=== PATIENT | female | born 1995 | race American Indian/Alaskan Native ===

== ENCOUNTER 2017-08-27 13:06 | Emergency (ER) | payer OTHER, MEDICAID ==
[2017-08-27 13:31] VITALS: BP 131/89
--- NOTE | 2017-08-27 13:55 | EDM.PDOC ---
ED HPI GENERAL MEDICAL PROBLEM - General Chief Complaint: Abdominal Pain Stated Complaint: PAIN ON RT SIDE Time Seen by Provider: 08/27/17 13:55 Source of Information: Reports: Patient, RN, RN Notes Reviewed History Limitations: Reports: No Limitations - History of Present Illness INITIAL COMMENTS - FREE TEXT/NARRATIVE: Patient presents with onset of right mid-abdominal pain 2 days ago with chills and nausea. The nausea went away but the pain increased and aches into the right flank. Denies vomiting or radiating pain. Duration: Getting Worse Location: Reports: Abdomen Quality: Reports: Ache Severity: Moderate Improves with: Reports: None Worsens with: Reports: None Associated Symptoms: Reports: No Other Symptoms Right Flank Pain Score (Numeric/FACES): 6 - Related Data Allergies Allergy/AdvReac Type Severity Reaction Status Date / Time No Known Allergies Allergy Verified 08/27/17 13:31 Home Meds: Home Meds . 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 ED EXAM, GI/ABD - Physical Exam Exam: See Below Exam Limited By: No Limitations General Appearance: Alert, WD/WN, No Apparent Distress Eyes: Bilateral: Normal Appearance Ears: Normal External Exam, Normal Canal, Hearing Grossly Normal, Normal TMs Nose: Normal Inspection, Normal Mucosa, No Blood Throat/Mouth: Normal Inspection, Normal Lips, Normal Teeth, Normal Gums, Normal Oropharynx, Normal Voice, No Airway Compromise Head: Atraumatic, Normocephalic Neck: Normal Inspection, Supple, Non-Tender, Full Range of Motion Respiratory/Chest: No Respiratory Distress, Lungs Clear, Normal Breath Sounds, No Accessory Muscle Use, Chest Non-Tender Cardiovascular: Normal Peripheral Pulses, Regular Rate, Rhythm, No Edema, No Gallop, No JVD, No Murmur, No Rub GI/Abdominal Exam: Other (mild tenderness RUQ). No: Guarding, Rigid, Rebound (Female) Exam: Deferred Rectal (Female) Exam: Deferred Back Exam: Normal Inspection, CVA Tenderness (R) Extremities: Normal Inspection, Normal Range of Motion, Non-Tender, Normal Capillary Refill, No Pedal Edema Neurological: Alert, Oriented, CN II-XII Intact, Normal Cognition, Normal Gait, Normal Reflexes, No Motor/Sensory Deficits Psychiatric: Normal Affect, Normal Mood Skin Exam: Warm, Dry, Intact, Normal Color, No Rash Course - Vital Signs Last Recorded V/S: Last Vital Signs Temp 36.9 C 08/27/17 13:28 Pulse 102 H 08/27/17 13:28 Resp 14 08/27/17 13:28 BP 131/89 08/27/17 13:28 Pulse Ox 100 08/27/17 13:28 - Orders/Labs/Meds Orders: Active Orders 24 hr Category Date Time Status CHLAMYDIA AND GONORRHEA BY [facility] Routine Lab 08/27/17 13:26 Received CULTURE URINE [RM] Stat Lab 08/27/17 13:26 Received Labs: Laboratory Tests 08/27/17 08/27/17 08/27/17 Range/Units 13:26 13:26 14:29 WBC 8.0 (5.0-10.0) 10^3/uL RBC 4.27 (4.2-5.4) 10^6/uL Hgb 12.2 (12.0-16.0) g/dL Hct 37.4 (37.0-47.0) % MCV 87.6 (80-100) fL MCH 28.6 (27.0-34.0) pg MCHC 32.6 L (33.0-35.0) g/dL Plt Count 197 (150-450) 10^3/uL Neut % (Auto) 74.4 (42.2-75.2) % Lymph % (Auto) 14.8 L (20.5-50.1) % [place] % (Auto) 10.7 H (2-8) % Eos % (Auto) 0.1 L (1.0-3.0) % Baso % (Auto) 0.0 (0.0-1.0) % Sodium (135-145) mmol/L Potassium (3.6-5.0) mmol/L Chloride (101-111) mmol/L Carbon Dioxide (21.0-31.0) mmol/L Anion Gap BUN (7-18) mg/dL Creatinine (0.6-1.3) mg/dL Est Cr Clr Drug Dosing mL/min Estimated GFR (MDRD) BUN/Creatinine Ratio Glucose (74-105) mg/dL Calcium (8.4-10.2) mg/dl Total Bilirubin (0.2-1.0) mg/dL AST (10-42) IU/L ALT (10-60) IU/L Alkaline Phosphatase (42-121) IU/L Total Protein (6.7-8.2) g/dl Albumin (3.2-5.5) g/dl Globulin Albumin/Globulin Ratio Urine Color Yellow (YELLOW) Urine Appearance Slightly cloudy (CLEAR) Urine pH 7.0 (5.0-9.0) Ur Specific [place] 1.015 (1.005-1.030) Urine Protein Negative (NEGATIVE) Urine Glucose (UA) Negative (NEGATIVE) Urine Ketones Negative (NEGATIVE) Urine Occult Blood Moderate H (NEGATIVE) Urine Nitrite Positive H (NEGATIVE) Urine Bilirubin Negative (NEGATIVE) Urine Urobilinogen 0.2 (0.2-1.0) mg/dL Ur Leukocyte Esterase Small H (NEGATIVE) Urine RBC 0-5 /HPF Urine WBC 5-10 H (0-5/HPF) /HPF Ur Epithelial Cells Moderate H /HPF Urine Bacteria Many H (0-FEW/HPF) /HPF Urine Yeast Moderate H (0/HPF) /HPF Urine HCG, Qual Negative 08/27/17 Range/Units 14:29 WBC (5.0-10.0) 10^3/uL RBC (4.2-5.4) 10^6/uL Hgb (12.0-16.0) g/dL Hct (37.0-47.0) % MCV (80-100) fL MCH (27.0-34.0) pg MCHC (33.0-35.0) g/dL Plt Count (150-450) 10^3/uL Neut % (Auto) (42.2-75.2) % Lymph % (Auto) (20.5-50.1) % [place] % (Auto) (2-8) % Eos % (Auto) (1.0-3.0) % Baso % (Auto) (0.0-1.0) % Sodium 136 (135-145) mmol/L Potassium 3.5 L (3.6-5.0) mmol/L Chloride 107 (101-111) mmol/L Carbon Dioxide 22.0 (21.0-31.0) mmol/L Anion Gap 10.5 BUN 8 (7-18) mg/dL Creatinine 0.5 L (0.6-1.3) mg/dL Est Cr Clr Drug Dosing 124.62 mL/min Estimated GFR (MDRD) > 60 BUN/Creatinine Ratio 16.00 Glucose 98 (74-105) mg/dL Calcium 8.8 (8.4-10.2) mg/dl Total Bilirubin 0.4 (0.2-1.0) mg/dL AST 29 (10-42) IU/L ALT 47 (10-60) IU/L Alkaline Phosphatase 39 L (42-121) IU/L Total Protein 8.2 (6.7-8.2) g/dl Albumin 3.8 (3.2-5.5) g/dl Globulin 4.4 Albumin/Globulin Ratio 0.86 Urine Color (YELLOW) Urine Appearance (CLEAR) Urine pH (5.0-9.0) Ur Specific [place] (1.005-1.030) Urine Protein (NEGATIVE) Urine Glucose (UA) (NEGATIVE) Urine Ketones (NEGATIVE) Urine Occult Blood (NEGATIVE) Urine Nitrite (NEGATIVE) Urine Bilirubin (NEGATIVE) Urine Urobilinogen (0.2-1.0) mg/dL Ur Leukocyte Esterase (NEGATIVE) Urine RBC /HPF Urine WBC (0-5/HPF) /HPF Ur Epithelial Cells /HPF Urine Bacteria (0-FEW/HPF) /HPF Urine Yeast (0/HPF) /HPF Urine HCG, Qual Departure - Departure Time of Disposition: 15:31 Disposition: Home, Self-Care 01 Condition: Good Clinical Impression: Pyelonephritis - Discharge Information Instructions: Urinary Tract Infection, Adult Forms: ED Department Discharge Additional Instructions: Rx: Cipro 500mg Use over the counter Ibuprofen (Motrin/Advil) 200mg: Take 3 tablets by mouth every 6 hours as needed for pain or fevers. Take with food. Drink plenty of water. Follow up in clinic in 7 to 10 days for urine recheck. Return to ER if worse at any time. - My Orders Last 24 Hours: My Active Orders 08/27/17 13:26 CHLAMYDIA AND GONORRHEA BY [facility] Routine CULTURE URINE [RM] Stat - Assessment/Plan Last 24 Hours: My Active Orders 08/27/17 13:26 CHLAMYDIA AND GONORRHEA BY [facility] Routine CULTURE URINE [RM] Stat
[2017-08-27 15:03] LABS: CHLORIDE,CL 107 mmol/L (101-111); SODIUM,NA 136 mmol/L (135-145)
== END 2017-08-27 15:48 | disposition home or self-care (01) ==
LOC: DL.ED 13:06
DX: N12 Tubulo-interstitial nephritis, not specified as acute or chronic (principal)
CPT/HCPCS: 36415; 80053; 81001; 81025; 85025; 87086; 87088; 87186; 87491; 87591; 99284

== ENCOUNTER 2020-03-11 17:23 | Emergency (ER) | payer MEDICAID, OTHER ==
[2020-03-11 17:29] VITALS: BP 132/89; PULSE 95
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
== END 2020-03-11 19:33 | disposition home or self-care (01) ==
LOC: DL.ED 17:23
DX: S05.12XA Contusion of eyeball and orbital tissues, left eye, initial encounter (principal); S05.11XA Contusion of eyeball and orbital tissues, right eye, initial encounter; S40.022A Contusion of left upper arm, initial encounter; S40.011A Contusion of right shoulder, initial encounter; D64.9 Anemia, unspecified; Z90.49 Acquired absence of other specified parts of digestive tract; Y04.0XXA Assault by unarmed brawl or fight, initial encounter
CPT/HCPCS: 70486; 99284-25

== ENCOUNTER 2020-06-05 00:22 | Inpatient (IN) | payer MEDICAID, OTHER ==
[2020-06-05] MEDS ORDERED: hydrOXYzine HCl 25 MG Tab PO ONE (00:57)
[2020-06-05] MEDS ORDERED: Lactated Ringers 1,000 ML IV SCH ×4 (01:00→09:00)
[2020-06-05] MEDS ORDERED: Acetaminophen 500 MG Tab PO ONE (03:16)
[2020-06-05] MEDS ORDERED: Sodium Chloride 0.9% 10 ML Syringe FLUSH PRN (08:57)
[2020-06-05] MEDS ORDERED: ceFAZolin 2 GM in Premix Bag 1 BAG IV ONE (08:57)
[2020-06-05] MEDS ORDERED: Citric Acid/Sodium Citrate Solution 30 ML Cup PO ONE (08:57)
[2020-06-05] MEDS ORDERED: Tranexamic Acid 1,000 MG in Sodium Chloride 0.9% 100 ML IV PRN (08:57)
[2020-06-05] MEDS ORDERED: fentaNYL 100 MCG/2 ML SDV IVPUSH ONE (08:57)
[2020-06-05] MEDS ORDERED: Oxytocin/Normal Saline 30 UNIT/500 ML BAG IV SCH (09:00)
--- NOTE | 2020-06-05 09:01 | PCM.LDHP ---
<Luly Sales R - Last Filed: 06/05/20 08:55> L&D History of Present Illness - General Date of Service: 06/05/20 Admit Problem/Dx: Admission Diagnosis/Problem Admission Diagnosis/Problem Source of Information: Patient History Limitations: Reports: No Limitations - History of Present Illness Introduction:: Patient presented to the labor and delivery unit for evaluation of contractions. contractions started last night, she presented to the triage was found to not make any change. she was discharge home where she went to get some food and then started to contract again. She came back to the ob triage for recheck and was found to be zion and to have made some change. she denied any vaginal bleeding, leaking of fluid, nausea, vomiting, chest pain, SOB, cough, fevers, chills, headache, or visual changes. She has been feeling baby. Location, : Reports: Abdomen Pain Score: 4 - Related Data Allergies/Adverse Reactions: Allergies Allergy/AdvReac Type Severity Reaction Status Date / Time No Known Allergies Allergy Verified 06/05/20 01:17 Home Medications: Home Meds Ferrous Sulfate 325 mg PO DAILY 02/21/19 [History] Pnv No.95/Ferrous Fum/Folic AC [ Vitamin Tablet] 1 each PO DAILY 02/21/19 [History] FLUoxetine [PROzac] 20 mg PO DAILY 06/05/20 [History] Past Medical History - Past Health History Medical/Surgical History: Denies Medical/Surgical History Genitourinary History: Reports: UTI, Recurrent [employer] History: Reports: , Spontaneous Musculoskeletal History: Reports: Fracture Psychiatric History: Reports: Anxiety, Depression Hematologic History: Reports: Anemia - Infectious Disease History Infectious Disease History: Reports: Hepatitis C - Past Surgical History HEENT Surgical History: Reports: Oral Surgery GI Surgical History: Reports: Appendectomy Female Surgical History: Reports: Section Social & Family History - Family History Family Medical History: No Pertinent Family History - Tobacco Use Tobacco Use Status *Q: Never Tobacco User Second Hand Smoke Exposure: No - Caffeine Use Caffeine Use: Reports: Soda - Recreational Drug Use Recreational Drug Use: Yes Drug Use in Last 12 Months: Yes Recreational Drug Type: Reports: Methamphetamine Recreational Drug Use Frequency: Not Used In Over 2 Months - Sexual History Sexual History: Reports: Sexually Active - Living Situation & Occupation Living situation: Reports: with Family H&P Review of Systems - Review of Systems: Review Of Systems: See Below General: Reports: No Symptoms HEENT: Reports: No Symptoms Pulmonary: Reports: No Symptoms Cardiovascular: Reports: No Symptoms Gastrointestinal: Reports: No Symptoms Genitourinary: Reports: No Symptoms Musculoskeletal: Reports: No Symptoms Skin: Reports: No Symptoms Psychiatric: Reports: No Symptoms Neurological: Reports: No Symptoms Hematologic/Lymphatic: Reports: No Symptoms Immunologic: Reports: No Symptoms L&D Exam - Exam Exam: See Below - Vital Signs Vital Signs: Last Vital Signs Temp 97.7 F 06/05/20 03:10 Pulse 76 06/05/20 03:10 Resp 16 06/05/20 03:10 BP 129/79 06/05/20 03:10 Pulse Ox Weight: 62.142 kg - OB Specific Contraction Duration (sec): 140 Contraction Frequency (min): 10 Contraction Intensity: Moderate Movement: Active Heart Tones: Present Heart Tones per Min: 120 Heart Rate (FHR) Variability: Moderate (6-25 bmp) - Exam General: Alert, Oriented Neck: Supple Lungs: Clear to Auscultation, Normal Respiratory Effort Cardiovascular: Regular Rate, Regular Rhythm GI/Abdominal Exam: Normal Bowel Sounds (gravid), Soft Back Exam: Normal Inspection Extremities: No Pedal Edema Skin: Warm, Dry, Intact - Problem List (1) Uterine contractions SNOMED Code(s): 683145823 ICD Code: [id number] - Status: Acute Current Visit: Yes Problem List Initiated/Reviewed/Updated: Yes Orders Last 24hrs: Active Orders 24 hr Category Date Time Status External Monitoring [ Heart Rate] [RC] Click Care 06/05/20 00:57 Active to Edit OB Check [OM.PC] Click to Edit Care 06/05/20 00:57 Ordered NPO [Nothing Per Oral Diet] [DIET] Diet 06/05/20 Breakfast Active Lactated Ringers [Ringers, Lactated] 1,000 ml Med 06/05/20 01:00 Active IV ASDIRECTED Lactated Ringers [Ringers, Lactated] 1,000 ml Med 06/05/20 03:30 Active IV ASDIRECTED Medication Orders Lactated Ringer's (Ringers, Lactated) 1,000 mls @ 999 mls/hr IV ASDIRECTED RUBEN Last Admin: 06/05/20 01:05 Dose: 999 mls/hr Documented by: ELENA Lactated Ringer's (Ringers, Lactated) 1,000 mls @ 175 mls/hr IV ASDIRECTED [facility] Last Admin: 06/05/20 03:20 Dose: 175 mls/hr Documented by: ELENA Assessment/Plan Comment:: at 38w1d Uterine contractions plan for repeat section positive GBS history of drug abuse with adoption planned hepatitis c virus carrier state Contractions are now every 2 minutes will plan for repeat at 10am on 06/05/2020 begin routine preop plan [place] <Elizabeth Vega - Last Filed: 06/05/20 23:38> L&D History of Present Illness - General Admit Problem/Dx: Patient Status Order with Admit Dx/Problem 06/05/20 08:57 Patient Status [ADT] Routine Admission Diagnosis/Problem Admission Diagnosis/Problem care L&D Exam - Vital Signs Vital Signs: Last Vital Signs Temp 36.7 C 06/05/20 20:50 Pulse 87 06/05/20 20:50 Resp 16 06/05/20 20:50 BP 117/60 06/05/20 20:50 Pulse Ox 96 06/05/20 20:50 - Patient Data Lab Results Last 24 hrs: Laboratory Results - last 24 hr 06/05/20 06/05/20 06/05/20 Range/Units 09:05 09:40 09:55 WBC 7.1 (5.0-10.0) 10^3/uL RBC 3.79 L (4.2-5.4) 10^6/uL Hgb 10.7 L D (12.0-16.0) g/dL Hct 32.4 L (37.0-47.0) % MCV 85.5 (80-100) fL MCH 28.2 (27.0-34.0) pg MCHC 33.0 (33.0-35.0) g/dL Plt Count 152 (150-450) 10^3/uL Neut % (Auto) 81.8 H (42.2-75.2) % Lymph % (Auto) 11.8 L (20.5-50.1) % [place] % (Auto) 6.4 (2-8) % Eos % (Auto) 0.0 L (1.0-3.0) % Baso % (Auto) 0.0 (0.0-1.0) % Urine Opiates Screen Negative (NEGATIVE) Ur Oxycodone Screen Negative (NEGATIVE) Urine Methadone Screen Negative (NEGATIVE) Ur Barbiturates Screen Negative (NEGATIVE) U Tricyclic Antidepress Negative (NEGATIVE) Ur Phencyclidine Scrn Negative (NEGATIVE) Ur Amphetamine Screen Negative (NEGATIVE) U Methamphetamines Scrn Negative (NEGATIVE) Urine MDMA Screen Negative (NEGATIVE) U Benzodiazepines Scrn Negative (NEGATIVE) Urine Cocaine Screen Negative (NEGATIVE) U Marijuana (THC) Screen Negative (NEGATIVE) SARS CoV-2 RNA Rapid KISHORE Negative (NEGATIVE) Blood Type Gel Antibody Screen 06/05/20 Range/Units 09:55 WBC (5.0-10.0) 10^3/uL RBC (4.2-5.4) 10^6/uL Hgb (12.0-16.0) g/dL Hct (37.0-47.0) % MCV (80-100) fL MCH (27.0-34.0) pg MCHC (33.0-35.0) g/dL Plt Count (150-450) 10^3/uL Neut % (Auto) (42.2-75.2) % Lymph % (Auto) (20.5-50.1) % [place] % (Auto) (2-8) % Eos % (Auto) (1.0-3.0) % Baso % (Auto) (0.0-1.0) % Urine Opiates Screen (NEGATIVE) Ur Oxycodone Screen (NEGATIVE) Urine Methadone Screen (NEGATIVE) Ur Barbiturates Screen (NEGATIVE) U Tricyclic Antidepress (NEGATIVE) Ur Phencyclidine Scrn (NEGATIVE) Ur Amphetamine Screen (NEGATIVE) U Methamphetamines Scrn (NEGATIVE) Urine MDMA Screen (NEGATIVE) U Benzodiazepines Scrn (NEGATIVE) Urine Cocaine Screen (NEGATIVE) U Marijuana (THC) Screen (NEGATIVE) SARS CoV-2 RNA Rapid KISHORE (NEGATIVE) Blood Type O POSITIVE Gel Antibody Screen Negative Result Diagrams: 06/05/20 09:55 Orders Last 24hrs: Active Orders 24 hr Category Date Time Status Patient Status [ADT] Routine ADT 06/05/20 08:57 Active Antiembolic Devices [RC] Care 06/05/20 15:00 Active Intake and Output [RC] Q8H Care 06/05/20 15:00 Active Notify Provider Intake and Out [RC] ASDIRECTED Care 06/05/20 15:00 Active Notify Provider Vital Signs OB [RC] ASDIRECTED Care 06/05/20 08:57 Active OB Check [OM.PC] Click to Edit Care 06/05/20 00:57 Ordered Peripheral IV Care [RC] 08,20 Care 06/05/20 08:58 Active RT Incentive Spirometry [RC] Q2HWA Care 06/05/20 15:00 Active Urinary Catheter Removal [RC] Per Unit Routine Care 06/05/20 15:00 Active Vital Signs [RC] 00,04,08,12,16,20 Care 06/05/20 15:00 Active Clear Liquid Diet [DIET] Diet 06/05/20 Dinner Active Regular Diet [DIET] Diet 06/05/20 Dinner Active Regular Diet [DIET] Diet 06/06/20 Breakfast Active CBC W/O DIFF,HEMOGRAM [HEME] Routine Lab 06/06/20 07:00 Ordered Acetaminophen [TylenoL] Med 06/05/20 15:00 Active 650 mg PO Q6H PRN Acetaminophen/oxyCODONE [Percocet 325-5 MG] Med 06/05/20 15:00 Active 1 tab PO Q4H PRN Acetaminophen/oxyCODONE [Percocet 325-5 MG] Med 06/05/20 15:00 Active 2 tab PO Q4H PRN Carboprost Tromethamine [Hemabate DS] Med 06/05/20 15:00 Active 250 mcg IM ONETIME PRN Docusate Sodium [Colace] Med 06/05/20 15:00 Active 100 mg PO Q12H PRN Ibuprofen [Motrin] Med 06/06/20 13:00 Active 800 mg PO Q8H PRN Ketorolac [Toradol] Med 06/05/20 17:00 Active 15 mg IVPUSH Q6H Lactated Ringers [Ringers, Lactated] 1,000 ml Med 06/05/20 15:00 Active IV ASDIRECTED Methylergonovine [Methergine] Med 06/05/20 15:00 Active 0.2 mg IM ONETIME PRN Naloxone [Narcan] Med 06/05/20 15:00 Active 0.1 mg IVPUSH SEECOMMENT PRN Ondansetron [Zofran] Med 06/05/20 15:00 Active 4 mg IVPUSH Q4H PRN Oxytocin/Normal Saline [Pitocin in NS 30 UNIT/500 ML] Med 06/05/20 09:00 Active 30 unit in 500 ml IV TITRATE Vit with Ca/FA/Iron [ Plus Iron] Med 06/06/20 09:00 Active 1 each PO DAILY Simethicone Med 06/05/20 17:00 Active 160 mg PO QID Sodium Chloride 0.9% [Saline Flush] Med 06/05/20 08:57 Active 10 ml FLUSH ASDIRECTED PRN Tranexamic Acid [Cyklokapron] 1,000 mg Med 06/05/20 08:57 Active Sodium Chloride 0.9% [Normal Saline] 100 ml IV ONETIME diphenhydrAMINE [Benadryl] Med 06/05/20 15:00 Active 25 mg IVPUSH Q6H PRN ePHEDrine [ePHEDrine sulfate] Med 06/05/20 15:00 Active 5 mg IVPUSH SEECOMMENT PRN miSOPROStoL [Cytotec] Med 06/05/20 15:00 Active 800 mcg RECTAL ASDIRECTED PRN Antiembolic Hose [OM.PC] Per Unit Routine Oth 06/05/20 15:00 Ordered Assess Lochia [WOMSER] Per Unit Routine Oth 06/05/20 15:00 Ordered Assess Uterine Involution [WOMSER] Per Unit Routine Oth 06/05/20 15:00 Ordered Breast Pump [WOMSER] Per Unit Routine Oth 06/05/20 15:00 Ordered Peripheral IV Insertion Adult [OM.PC] Routine Oth 06/05/20 08:57 Ordered Sequential Compression Device [OM.PC] Per Unit Routine Oth 06/05/20 15:00 Ordered Resuscitation Status Routine Resus Stat 06/05/20 08:57 Ordered Medication Orders Acetaminophen (Tylenol) 650 mg PO Q6H PRN PRN Reason: mild pain or fever Carboprost Tromethamine (Hemabate Ds) 250 mcg IM ONETIME PRN PRN Reason: Bleeding Diphenhydramine HCl (Benadryl) 25 mg IVPUSH Q6H PRN PRN Reason: Itching or Nausea Docusate Sodium (Colace) 100 mg PO Q12H PRN PRN Reason: Constipation Ephedrine Sulfate (Ephedrine Sulfate) 5 mg IVPUSH SEECOMMENT PRN PRN Reason: Other Tranexamic Acid 1,000 mg/ (Sodium Chloride) 110 mls @ 660 mls/hr IV ONETIME PRN PRN Reason: Bleeding Oxytocin/Sodium Chloride (Pitocin In Ns 30 Unit/500 Ml) 30 unit in 500 mls @ 2 mls/hr IV TITRATE RUBEN; Protocol Last Titration: 06/05/20 14:50 Dose: 0 munits/min, 0 mls/hr Documented by: Titration: 06/05/20 12:45 Dose: 50 munits/min, 50 mls/hr Documented by: Admin: 06/05/20 11:35 Dose: 125 munits/min, 125 mls/hr Documented by: MARY Lactated Ringer's (Ringers, Lactated) 1,000 mls @ 125 mls/hr IV ASDIRECTED RUBEN Last Admin: 06/05/20 17:15 Dose: 125 mls/hr Documented by: GUTIERREZ Ibuprofen (Motrin) 800 mg PO Q8H PRN PRN Reason: mild pain or fever Ketorolac Tromethamine (Toradol) 15 mg IVPUSH Q6H RUBEN Stop: 06/06/20 05:01 Last Admin: 06/05/20 17:08 Dose: 15 mg Documented by: GUTIERREZ Methylergonovine Maleate (Methergine) 0.2 mg IM ONETIME PRN PRN Reason: Excessive Vaginal Bleeding Misoprostol (Cytotec) 800 mcg RECTAL ASDIRECTED PRN PRN Reason: Excessive bleeding Naloxone HCl (Narcan) 0.1 mg IVPUSH SEECOMMENT PRN PRN Reason: Respiratory Depression Ondansetron HCl (Zofran) 4 mg IVPUSH Q4H PRN PRN Reason: Nausea/Vomiting Oxycodone/Acetaminophen (Percocet 325-5 Mg) 1 tab PO Q4H PRN PRN Reason: Pain (moderate 4-6) Oxycodone/Acetaminophen (Percocet 325-5 Mg) 2 tab PO Q4H PRN PRN Reason: Pain (moderate 4-6) Prenat Multivit/[place]/Iron/Folic Ac ( Plus Iron) 1 each PO DAILY [facility] Simethicone (Simethicone) 160 mg PO QID RUBEN Last Admin: 06/05/20 17:09 Dose: 160 mg Documented by: GUTIERREZ Sodium Chloride (Saline Flush) 10 ml FLUSH ASDIRECTED PRN PRN Reason: Keep Vein Open Assessment/Plan Comment:: Agree with resident assessment and plan. Due to cervical change and increased frequency of contractions, will proceed with repeat section Elizabeth Vega MD
[2020-06-05] MEDS ORDERED: Morphine PF 1 MG/ML Amp ONE (14:32)
[2020-06-05] MEDS ORDERED: Ketorolac 30 MG/ML SDV IVPUSH ONE (14:32)
[2020-06-05] MEDS ORDERED: Propofol 200 MG/20 ML SDV IV ONE (14:32)
[2020-06-05] MEDS ORDERED: Lactated Ringers 1,000 ML IV ONE (14:32)
[2020-06-05] MEDS ORDERED: diphenhydrAMINE 50 MG/ML SDV IVPUSH PRN (15:00)
[2020-06-05] MEDS ORDERED: Acetaminophen 325 MG Tab PO PRN (15:00)
[2020-06-05] MEDS ORDERED: Acetaminophen/oxyCODONE 325-5 MG Tab PO PRN (15:00)
[2020-06-05] MEDS ORDERED: ePHEDrine 50 MG/ML SDV IVPUSH PRN (15:00)
[2020-06-05] MEDS ORDERED: Carboprost Tromethamine 250 MCG/1 ML Amp IM PRN (15:00)
[2020-06-05] MEDS ORDERED: Ondansetron 4 MG/2 ML SDV IVPUSH PRN (15:00)
[2020-06-05] MEDS ORDERED: Misoprostol 400 MCG (4 X 100 MCG TAB) RECTAL PRN (15:00)
[2020-06-05] MEDS ORDERED: Naloxone 2 MG/2 ML Syringe IVPUSH PRN (15:00)
[2020-06-05] MEDS ORDERED: Methylergonovine 0.2 MG/1 ML Amp IM PRN (15:00)
--- NOTE | 2020-06-05 15:03 | PCM.DEL ---
L & D Note - General Info Date of Service: 06/05/20 Mother's Due Date: 06/18/20 - Delivery Note Labor: Spontaneous Delivery Outcome: Livebirth Infant Delivery Method: Repeat Presentation: Vertex Nuchal Cord: None Anesthesia Type: Spinal Amniotic Fluid Description: Clear Placenta: Intact Cord: 3 Vessels Estimated Blood Loss: 400 : Bulb Syringe, Stimulated, Warmed, Warmer Used Delivery Comments (Free Text/Narrative):: Please see procedure note for details - General Info Date of Service: 06/05/20 - Patient Data Vitals - Most Recent: Last Vital Signs Temp 36.7 C 06/05/20 11:35 Pulse 66 06/05/20 12:05 Resp 17 06/05/20 12:05 BP 127/82 06/05/20 12:05 Pulse Ox 96 06/05/20 12:05 Weight - Most Recent: 62.142 kg I&O - Last 24 Hours: Intake & Output 06/05/20 06/05/20 06/05/20 06:59 14:59 22:59 Output Total 250 Balance -250 Lab Results Last 24 Hours: Laboratory Results - last 24 hr 06/05/20 06/05/20 06/05/20 Range/Units 09:05 09:40 09:55 WBC 7.1 (5.0-10.0) 10^3/uL RBC 3.79 L (4.2-5.4) 10^6/uL Hgb 10.7 L D (12.0-16.0) g/dL Hct 32.4 L (37.0-47.0) % MCV 85.5 (80-100) fL MCH 28.2 (27.0-34.0) pg MCHC 33.0 (33.0-35.0) g/dL Plt Count 152 (150-450) 10^3/uL Neut % (Auto) 81.8 H (42.2-75.2) % Lymph % (Auto) 11.8 L (20.5-50.1) % [place] % (Auto) 6.4 (2-8) % Eos % (Auto) 0.0 L (1.0-3.0) % Baso % (Auto) 0.0 (0.0-1.0) % Urine Opiates Screen Negative (NEGATIVE) Ur Oxycodone Screen Negative (NEGATIVE) Urine Methadone Screen Negative (NEGATIVE) Ur Barbiturates Screen Negative (NEGATIVE) U Tricyclic Antidepress Negative (NEGATIVE) Ur Phencyclidine Scrn Negative (NEGATIVE) Ur Amphetamine Screen Negative (NEGATIVE) U Methamphetamines Scrn Negative (NEGATIVE) Urine MDMA Screen Negative (NEGATIVE) U Benzodiazepines Scrn Negative (NEGATIVE) Urine Cocaine Screen Negative (NEGATIVE) U Marijuana (THC) Screen Negative (NEGATIVE) SARS CoV-2 RNA Rapid KISHORE Negative (NEGATIVE) Blood Type Gel Antibody Screen 06/05/20 Range/Units 09:55 WBC (5.0-10.0) 10^3/uL RBC (4.2-5.4) 10^6/uL Hgb (12.0-16.0) g/dL Hct (37.0-47.0) % MCV (80-100) fL MCH (27.0-34.0) pg MCHC (33.0-35.0) g/dL Plt Count (150-450) 10^3/uL Neut % (Auto) (42.2-75.2) % Lymph % (Auto) (20.5-50.1) % [place] % (Auto) (2-8) % Eos % (Auto) (1.0-3.0) % Baso % (Auto) (0.0-1.0) % Urine Opiates Screen (NEGATIVE) Ur Oxycodone Screen (NEGATIVE) Urine Methadone Screen (NEGATIVE) Ur Barbiturates Screen (NEGATIVE) U Tricyclic Antidepress (NEGATIVE) Ur Phencyclidine Scrn (NEGATIVE) Ur Amphetamine Screen (NEGATIVE) U Methamphetamines Scrn (NEGATIVE) Urine MDMA Screen (NEGATIVE) U Benzodiazepines Scrn (NEGATIVE) Urine Cocaine Screen (NEGATIVE) U Marijuana (THC) Screen (NEGATIVE) SARS CoV-2 RNA Rapid KISHORE (NEGATIVE) Blood Type O POSITIVE Gel Antibody Screen Negative Med Orders - Current: Current Medications Tranexamic Acid 1,000 mg/ (Sodium Chloride) 110 mls @ 660 mls/hr IV ONETIME PRN PRN Reason: Bleeding Oxytocin/Sodium Chloride (Pitocin In Ns 30 Unit/500 Ml) 30 unit in 500 mls @ 2 mls/hr IV TITRATE RUBEN; Protocol Last Admin: 06/05/20 11:35 Dose: 125 munits/min, 125 mls/hr Documented by: Sodium Chloride (Saline Flush) 10 ml FLUSH ASDIRECTED PRN PRN Reason: Keep Vein Open Discontinued Medications Acetaminophen (Tylenol Extra Strength) 1,000 mg PO ONETIME ONE Stop: 06/05/20 03:17 Last Admin: 06/05/20 03:50 Dose: 1,000 mg Documented by: Citric Acid/Sodium Citrate (Bicitra Solution) 30 ml PO ONETIME ONE Stop: 06/05/20 08:58 Last Admin: 06/05/20 09:53 Dose: 30 ml Documented by: Fentanyl (Sublimaze) 50 mcg IVPUSH ONETIME ONE Stop: 06/05/20 08:58 Last Admin: 06/05/20 09:35 Dose: 50 mcg Documented by: Hydroxyzine HCl (Atarax) 50 mg PO ONETIME ONE Stop: 06/05/20 00:58 Last Admin: 06/05/20 01:32 Dose: 50 mg Documented by: Lactated Ringer's (Ringers, Lactated) 1,000 mls @ 999 mls/hr IV ASDIRECTED [facility] Last Admin: 06/05/20 01:05 Dose: 999 mls/hr Documented by: Lactated Ringer's (Ringers, Lactated) 1,000 mls @ 175 mls/hr IV ASDIRECTED [facility] Last Admin: 06/05/20 03:20 Dose: 175 mls/hr Documented by: Lactated Ringer's (Ringers, Lactated) 1,000 mls @ 125 mls/hr IV ASDIRECTED [facility] Lactated Ringer's (Ringers, Lactated) 1,000 mls @ 500 mls/hr IV .BOLUS [facility] Cefazolin Sodium/Dextrose 2 gm (/ Premix) 50 mls @ 100 mls/hr IV ONETIME ONE Stop: 06/05/20 09:26 Last Admin: 06/05/20 10:22 Dose: 100 mls/hr Documented by: Lactated Ringer's (Ringers, Lactated) 1,000 mls @ as directed IV .STK-MED ONE Stop: 06/05/20 14:33 Ketorolac Tromethamine (Toradol) 30 mg IVPUSH .STK-MED ONE Stop: 06/05/20 14:33 Morphine Sulfate (Duramorph Pf) 0.2 mg .XX .STK-MED ONE Stop: 06/05/20 14:33 Propofol (Diprivan 20 Ml) 200 mg IV .STK-MED ONE Stop: 06/05/20 14:33 - Problem List & Annotations (1) Drug use affecting SNOMED Code(s): 24840052, 419796181 Code(s): O99.320 - DRUG USE COMPLICATING , UNSPECIFIED TRIMESTER Status: Acute Current Visit: Yes (2) care SNOMED Code(s): 333950302, 36136423, 871553884, 447256114 Code(s): Z34.90 - ENCNTR FOR SUPRVSN OF NORMAL , UNSP, UNSP TRIMESTER Status: Acute Current Visit: Yes (3) GBS (group B Streptococcus carrier), +RV culture, currently SNOMED Code(s): 7112728348619, 976433775, 6254748806756 Code(s): O99.820 - STREPTOCOCCUS B CARRIER STATE COMPLICATING Status: Acute Current Visit: Yes (4) Anemia affecting SNOMED Code(s): 63112664 Code(s): O99.019 - ANEMIA COMPLICATING , UNSPECIFIED TRIMESTER Status: Acute Current Visit: No (5) Hepatitis C carrier SNOMED Code(s): 711308304 Code(s): B18.2 - CHRONIC VIRAL HEPATITIS C Status: Acute Current Visit: No (6) Status post delivery SNOMED Code(s): 758719200, 568443678 Code(s): Z98.891 - HISTORY OF UTERINE SCAR FROM PREVIOUS SURGERY Status: Acute Current Visit: No - Problem List Review Problem List Initiated/Reviewed/Updated: Yes - My Orders Last 24 Hours: My Active Orders 06/05/20 00:57 OB Check [OM.PC] Click to Edit 06/05/20 08:57 Patient Status [ADT] Routine Notify Provider Vital Signs OB [RC] ASDIRECTED Sodium Chloride 0.9% [Saline Flush] 10 ml FLUSH ASDIRECTED PRN Tranexamic Acid [Cyklokapron] 1,000 mg Sodium Chloride 0.9% [Normal Saline] 100 ml IV ONETIME Peripheral IV Insertion Adult [OM.PC] Routine Resuscitation Status Routine 06/05/20 08:58 Peripheral IV Care [RC] . DIRECTED 06/05/20 09:00 Oxytocin/Normal Saline [Pitocin in NS 30 UNIT/500 ML] 30 unit in 500 ml IV TITRATE 06/05/20 15:00 Antiembolic Devices [RC] PER UNIT ROUTINE Bedrest [RC] ASDIRECTED Communication Order [RC] PER UNIT ROUTINE Communication Order [RC] PER UNIT ROUTINE Communication Order [RC] Per Unit Routine Intake and Output [RC] Q8H Notify Provider Intake and Out [RC] ASDIRECTED RT Incentive Spirometry [RC] Q2HWA Urinary Catheter Removal [RC] Per Unit Routine Vital Signs [RC] PER UNIT ROUTINE Acetaminophen [TylenoL] 650 mg PO Q6H PRN Acetaminophen/oxyCODONE [Percocet 325-5 MG] 1 tab PO Q4H PRN Acetaminophen/oxyCODONE [Percocet 325-5 MG] 2 tab PO Q4H PRN Carboprost Tromethamine [Hemabate DS] 250 mcg IM ONETIME PRN Docusate Sodium [Colace] 100 mg PO Q12H PRN Ibuprofen [Motrin] 800 mg PO Q8H PRN Ketorolac [Toradol] 15 mg IVPUSH Q6H Lactated Ringers @ 125 MLS/HR(1000ml) Lactated Ringers [Ringers, Lactated] 1,000 ml IV ASDIRECTED Methylergonovine [Methergine] 0.2 mg IM ONETIME PRN Naloxone [Narcan] 0.1 mg IVPUSH SEECOMMENT PRN Ondansetron [Zofran] 4 mg IVPUSH Q4H PRN diphenhydrAMINE [Benadryl] 25 mg IVPUSH Q6H PRN ePHEDrine [ePHEDrine sulfate] 5 mg IVPUSH SEECOMMENT PRN miSOPROStoL [Cytotec] 800 mcg RECTAL ASDIRECTED PRN Antiembolic Hose [OM.PC] Per Unit Routine Assess Lochia [WOMSER] Per Unit Routine Assess Uterine Involution [WOMSER] Per Unit Routine Breast Pump [WOMSER] Per Unit Routine Sequential Compression Device [OM.PC] Per Unit Routine 06/05/20 17:00 Simethicone 160 mg PO QID 06/05/20 Dinner Clear Liquid Diet [DIET] 06/06/20 07:00 CBC W/O DIFF,HEMOGRAM [HEME] Routine 06/06/20 Breakfast Regular Diet [DIET] 06/06/20 09:00 Vit with Ca/FA/Iron [ Plus Iron] 1 each PO DAILY - Assessment Assessment:: 25-year-old, now , s/p repeat section at 38w1d - Plan Plan:: 1. Initiate routine cares 2. Check CBC tomorrow AM 3. Planned adoption for baby 4. Mother does plan to pump/breastfeed 5. Anticipate discharge 06/08/2020 Elizabeth Vega MDl
--- NOTE | 2020-06-05 15:03 | PCM.PRNOTE ---
- Free Text/Narrative Note: Section Operative Report Date of Surgery: 06/05/2020 Surgeon: Elizabeth Vega MD End Worker: MD Luly Lujan MD, PGY3 Pre-Operative Diagnosis: Active labor at 38w1d History of section Drug use in HCV+ Post-Operative Diagnosis: Same Procedure Performed: Repeat low transverse section Anesthesia: Spinal EBL: 400 mL IVF: 1700 mL Drains: Marsh catheter with 500 mL of urine output Specimens: None Complications: None apparent Findings: Normal uterus, tubes, and ovaries. Indication and Consent: The patient presented to floor today with increased contractions. After several hours of monitoring, patient was determined to have progressed to active labor. Due to history of section, patient was advised of the need to proceed with repeat section. The patient understood that the risks of section include, but are not limited to, visceral or vascular injury, infection, blood loss and need for blood transfusion, prolonged hospitalization, and reoperation. The patient again stated understanding and desired to proceed. All questions were answered. Procedure in Detail: The patient was taken to the operating room where spinal anesthesia was placed and found to be adequate. 2 grams of cefazolin (Ancef) were given for infection prophylaxis. She was then prepped and draped in routine fashion in dorsal supine position with a left morales tilt. Marsh catheter and pneumoboots were placed. A Pfannenstiel skin incision was made with a scalpel. The incision was carried down to the fascia sharply. The fascia was incised and extended laterally. The superior aspect of the fascia was grasped with Vonnie clamps; the underlying rectus muscle and pyramidalis was dissected off with sharp and blunt technique. In a similar fashion, the inferior aspect of the fascia was elevated with Vonnie clamps and the rectus muscle was dissected off. Hemostasis was achieved with the Bovie. The rectus musculature was in the midline down to the level of the pubic symphysis. Pre-peritoneal fatty tissue was bluntly dissected to expose the peritoneum. The peritoneum was found to be free of adherent bowel or bladder tissue and entered bluntly. The peritoneal opening was then extended superiorly and inferiorly to the bladder reflection with good visualization of the bladder. The Jordy retractor was inserted. Intraabdominal survey revealed scant, clear peritoneal fluid and thinned-out lower uterine segment. The vesicouterine peritoneum was opened with a pickup and mets, and the bladder flap was developed. The lower uterine segment was incised with a scalpel. The amniotic sac was ruptured during the incision and clear fluid was noted. The uterine incision was extended bluntly with lateral and upward traction. The fetus was in cephalic position. The head was elevated out of the maternal pelvis with special attention paid to avoid using the uterine incision as a fulcrum. Gentle fundal pressure was applied once the head was brought into the incision. The infant was delivered with minimal difficulty. Bulb suctioning of the infant's nose and mouth was performed on the operative field. Cord blood was collected.The cord was clamped and cut in standard fashion, and the infant was handed over to the awaiting nursery staff. Cord blood was collected. IV oxytocin was initiated to facilitate uterine contractions. The placenta was delivered intact with manual message of the uterine fundus along with gentle cord traction. The inside of the uterus was gently wiped with a lap sponge to assure complete removal of remaining products of conception. The uterine incision was closed with 0 -Vicryl suture in a running locked fashion. A second imbricating layer of 0-Monocryl was also placed. The incision was inspected and hemostasis was achieved. The ovaries and tubes were visualized and found to be normal. The blood clots and fluid were wiped out of the abdomen and pelvis with laparotomy sponges. The uterine incision was re- inspected along with all other incised surfaces and good hemostasis was confirmed. The Jordy retractor was removed. The fascia was then closed with 2-0 looped PDS suture with care not to include any underlying abdominal contents. The skin was closed with 4-0 Monocryl suture on a Bimal needle in a subcuticular fashion. A small amount of persistent oozing was noted along the skin edge. Additional dressing was applied ot accommodate this. Sponge and instrument counts were reported as correct times two. Patient tolerated procedure well and was taken to PACU in stable condition. Elizabeth Vega MD
[2020-06-05] MEDS: Ketorolac 30 MG/ML SDV IVPUSH SCH ×2 (17:08→23:40)
[2020-06-05] MEDS: Simethicone 80 MG Tab.Chew PO SCH ×2 (17:09→23:41)
[2020-06-05] MEDS: Lactated Ringers 1,000 ML IV SCH ×2 (17:15→23:41)
[2020-06-05] MEDS: Docusate Sodium 100 MG Cap PO PRN (23:41)
[2020-06-06] MEDS: Ketorolac 30 MG/ML SDV IVPUSH SCH (05:08)
[2020-06-06] MEDS: Acetaminophen/oxyCODONE 325-5 MG Tab PO PRN ×3 (08:49→20:38)
[2020-06-06] MEDS: Simethicone 80 MG Tab.Chew PO SCH ×4 (08:49→20:38)
[2020-06-06] MEDS: Docusate Sodium 100 MG Cap PO PRN ×2 (08:49→20:38)
[2020-06-06] MEDS: Prenatal Multivitamin with Calcium/Folic Acid/Iron Tab PO SCH (08:49)
--- NOTE | 2020-06-06 13:06 | PCM.SN.2 ---
- Free Text/Narrative Note: Obstetric Progress Note Post Operative Day #1 Today's Date: 06/06/2020 Post operative Day #1 for rLTCS Subjective: Yas is post op day one from her . She reports her lochia is moderate. She is notbreastfeeding. She has adequate pain control with oral pain medications. Her jarrett has been removed. She has been out of bed. She has started advancing her diet. She has passed flatus. She has not had a bowel movement. She no complaints. No acute events overnight. Objective: Vitals reviewed General: alert, cooperative, in no distress Lungs: clear to auscultation bilaterally CV: Heart: regular rate and rhythm, normal S1, S2, no murmurs . Her lower limbs are nontender and have no edema. Patient has not been wearing SCDs Abdomen: Post-, soft, nontender, nondistended, bowel sounds are present. Her incision site is covered some minor leakage at left corner but otherwise clean, dry, intact bandage. Uterus: firm is appropriately tender at 1 cm below the umbilicus. Skin: is warm and dry, no visible lesions, well perfused Lab Results: O+ Hgb 9.2 Plt 159 RPR: non reactive Rubella: not immune GBS: positive Hbs: negative Assessment: 25 year old female now postoperative day 1 s/p rLTCS. No signs of anemia. Plan: Routine post-operative cares. Post operative Hgb not consistent with acute blood loss anemia. Ambulate patient. Advance diet as tolerated. Saline lock IV with good oral intake. Patient may remove incision dressing 24 hours after surgery. Anticipate discharge on POD3. Luly Sales
[2020-06-06] MEDS: Ibuprofen 800 MG Tab PO PRN (14:14)
[2020-06-07] MEDS: Ibuprofen 800 MG Tab PO PRN ×2 (00:17→08:03)
[2020-06-07 00:45] VITALS: PULSE 97
[2020-06-07] MEDS: Acetaminophen/oxyCODONE 325-5 MG Tab PO PRN ×2 (04:24→08:02)
[2020-06-07] MEDS: Docusate Sodium 100 MG Cap PO PRN (08:03)
[2020-06-07] MEDS: Simethicone 80 MG Tab.Chew PO SCH (08:03)
[2020-06-07] MEDS: Prenatal Multivitamin with Calcium/Folic Acid/Iron Tab PO SCH (08:03)
--- NOTE | 2020-06-07 08:46 | PCM.DCSUM1 ---
Discharge Summary - Hospital Course Diagnosis: Stroke: No - Discharge Data Discharge Disposition: Home, Self-Care 01 Condition: Good - Referral to Home Health Primary Care Physician: Sarah Anderson MD - Discharge Diagnosis/Problem(s) (1) Drug use affecting SNOMED Code(s): 34755087, 455666275 ICD Code: O99.320 - DRUG USE COMPLICATING , UNSPECIFIED TRIMESTER Status: Acute Current Visit: Yes (2) care SNOMED Code(s): 699381129, 10077033, 254722980, 131306527 ICD Code: Z34.90 - ENCNTR FOR SUPRVSN OF NORMAL , UNSP, UNSP TRIMESTER Status: Acute Current Visit: Yes (3) GBS (group B Streptococcus carrier), +RV culture, currently SNOMED Code(s): 3890209692617, 442698047, 1401315773794 ICD Code: O99.820 - STREPTOCOCCUS B CARRIER STATE COMPLICATING Status: Acute Current Visit: Yes (4) Anemia affecting SNOMED Code(s): 05813525 ICD Code: O99.019 - ANEMIA COMPLICATING , UNSPECIFIED TRIMESTER Status: Acute Current Visit: No (5) Hepatitis C carrier SNOMED Code(s): 444790967 ICD Code: B18.2 - CHRONIC VIRAL HEPATITIS C Status: Acute Current Visit: No (6) Status post delivery SNOMED Code(s): 079376484, 336566632 ICD Code: Z98.891 - HISTORY OF UTERINE SCAR FROM PREVIOUS SURGERY Status: Acute Current Visit: No - Discharge Plan *PRESCRIPTION DRUG MONITORING PROGRAM REVIEWED*: Not Applicable *COPY OF PRESCRIPTION DRUG MONITORING REPORT IN PATIENT ALICIA: Not Applicable Home Medications: Home Meds Ferrous Sulfate 325 mg PO DAILY 02/21/19 [History] Pnv No.95/Ferrous Fum/Folic AC [ Vitamin Tablet] 1 each PO DAILY 02/21/19 [History] FLUoxetine [PROzac] 20 mg PO DAILY 06/05/20 [History] Acetaminophen [Tylenol] 650 mg PO Q6H PRN tablet 06/07/20 [Rx] Acetaminophen/oxyCODONE [Percocet 325-5 MG] 1 tab PO Q4H PRN tablet 06/07/20 [Rx] Acetaminophen/oxyCODONE [Percocet 325-5 MG] 2 tab PO Q4H PRN tablet 06/07/20 [Rx] Docusate Sodium [Colace] 100 mg PO Q12H PRN cap 06/07/20 [Rx] Ibuprofen [Motrin] 800 mg PO Q8H PRN tablet 06/07/20 [Rx] - Patient Data Vitals - Most Recent: Last Vital Signs Temp 37.2 C 06/07/20 00:45 Pulse 97 06/07/20 00:45 Resp 16 06/07/20 00:45 BP 118/62 06/07/20 00:45 Pulse Ox 97 06/07/20 00:45 Weight - Most Recent: 62.142 kg Med Orders - Current: Current Medications Acetaminophen (Tylenol) 650 mg PO Q6H PRN PRN Reason: mild pain or fever Carboprost Tromethamine (Hemabate Ds) 250 mcg IM ONETIME PRN PRN Reason: Bleeding Diphenhydramine HCl (Benadryl) 25 mg IVPUSH Q6H PRN PRN Reason: Itching or Nausea Docusate Sodium (Colace) 100 mg PO Q12H PRN PRN Reason: Constipation Last Admin: 06/07/20 08:03 Dose: 100 mg Documented by: Ephedrine Sulfate (Ephedrine Sulfate) 5 mg IVPUSH SEECOMMENT PRN PRN Reason: Other Tranexamic Acid 1,000 mg/ (Sodium Chloride) 110 mls @ 660 mls/hr IV ONETIME PRN PRN Reason: Bleeding Oxytocin/Sodium Chloride (Pitocin In Ns 30 Unit/500 Ml) 30 unit in 500 mls @ 2 mls/hr IV TITRATE RUBNE; Protocol Last Titration: 06/05/20 14:50 Dose: 0 munits/min, 0 mls/hr Documented by: Lactated Ringer's (Ringers, Lactated) 1,000 mls @ 125 mls/hr IV ASDIRECTED RUBEN Last Admin: 06/05/20 23:41 Dose: 125 mls/hr Documented by: Ibuprofen (Motrin) 800 mg PO Q8H PRN PRN Reason: mild pain or fever Last Admin: 06/07/20 08:03 Dose: 800 mg Documented by: Methylergonovine Maleate (Methergine) 0.2 mg IM ONETIME PRN PRN Reason: Excessive Vaginal Bleeding Misoprostol (Cytotec) 800 mcg RECTAL ASDIRECTED PRN PRN Reason: Excessive bleeding Naloxone HCl (Narcan) 0.1 mg IVPUSH SEECOMMENT PRN PRN Reason: Respiratory Depression Ondansetron HCl (Zofran) 4 mg IVPUSH Q4H PRN PRN Reason: Nausea/Vomiting Oxycodone/Acetaminophen (Percocet 325-5 Mg) 1 tab PO Q4H PRN PRN Reason: Pain (moderate 4-6) Last Admin: 06/06/20 02:54 Dose: 1 tab Documented by: Oxycodone/Acetaminophen (Percocet 325-5 Mg) 2 tab PO Q4H PRN PRN Reason: Pain (moderate 4-6) Last Admin: 06/07/20 08:02 Dose: 2 tab Documented by: Rashard Multivit/Application Development Intern/Iron/Folic Ac ( Plus Iron) 1 each PO DAILY [facility] Last Admin: 06/07/20 08:03 Dose: 1 each Documented by: Simethicone (Simethicone) 160 mg PO QID [facility] Last Admin: 06/07/20 08:03 Dose: 160 mg Documented by: Sodium Chloride (Saline Flush) 10 ml FLUSH ASDIRECTED PRN PRN Reason: Keep Vein Open Discontinued Medications Acetaminophen (Tylenol Extra Strength) 1,000 mg PO ONETIME ONE Stop: 06/05/20 03:17 Last Admin: 06/05/20 03:50 Dose: 1,000 mg Documented by: Citric Acid/Sodium Citrate (Bicitra Solution) 30 ml PO ONETIME ONE Stop: 06/05/20 08:58 Last Admin: 06/05/20 09:53 Dose: 30 ml Documented by: Fentanyl (Sublimaze) 50 mcg IVPUSH ONETIME ONE Stop: 06/05/20 08:58 Last Admin: 06/05/20 09:35 Dose: 50 mcg Documented by: Hydroxyzine HCl (Atarax) 50 mg PO ONETIME ONE Stop: 06/05/20 00:58 Last Admin: 06/05/20 01:32 Dose: 50 mg Documented by: Lactated Ringer's (Ringers, Lactated) 1,000 mls @ 999 mls/hr IV ASDIRECTED [facility] Last Admin: 06/05/20 01:05 Dose: 999 mls/hr Documented by: Lactated Ringer's (Ringers, Lactated) 1,000 mls @ 175 mls/hr IV ASDIRECTED [facility] Last Admin: 06/05/20 03:20 Dose: 175 mls/hr Documented by: Lactated Ringer's (Ringers, Lactated) 1,000 mls @ 125 mls/hr IV ASDIRECTED [facility] Lactated Ringer's (Ringers, Lactated) 1,000 mls @ 500 mls/hr IV .BOLUS [facility] Cefazolin Sodium/Dextrose 2 gm (/ Premix) 50 mls @ 100 mls/hr IV ONETIME ONE Stop: 06/05/20 09:26 Last Admin: 06/05/20 10:22 Dose: 100 mls/hr Documented by: Lactated Ringer's (Ringers, Lactated) 1,000 mls @ as directed IV .STK-MED ONE Stop: 06/05/20 14:33 Ketorolac Tromethamine (Toradol) 30 mg IVPUSH .STK-MED ONE Stop: 06/05/20 14:33 Ketorolac Tromethamine (Toradol) 15 mg IVPUSH Q6H [facility] Stop: 06/06/20 05:01 Last Admin: 06/06/20 05:08 Dose: 15 mg Documented by: Morphine Sulfate (Duramorph Pf) 0.2 mg .XX .STK-MED ONE Stop: 06/05/20 14:33 Propofol (Diprivan 20 Ml) 200 mg IV .STK-MED ONE Stop: 06/05/20 14:33
[2020-06-07] MEDS ORDERED: Oxytocin/Normal Saline 30 UNIT/500 ML BAG IV ONE (09:43)
[2020-06-07 11:30] VITALS: BP 120/74
== END 2020-06-07 10:25 | disposition home or self-care (01) | DRG 788 ==
LOC: DL.OBCHECK 00:22 → DL.MS 08:57 → OBSVTOIN 10:48 → DL.MS 10:48
PROVIDERS: ADMIT Family Medicine; ATTEND Family Medicine
PROC: 10D00Z1 Extraction of Products of Conception, Low, Open Approach (ICD-10-PCS; principal; 2020-06-05)
DX: O34.211 Maternal care for low transverse scar from previous cesarean delivery (principal); Z37.0 Single live birth; Z3A.38 38 weeks gestation of pregnancy; O99.02 Anemia complicating childbirth; D64.9 Anemia, unspecified; O99.344 Other mental disorders complicating childbirth; F41.9 Anxiety disorder, unspecified; F32.9 Major depressive disorder, single episode, unspecified; O99.824 Streptococcus B carrier state complicating childbirth; O99.320 Drug use complicating pregnancy, unspecified trimester
CPT/HCPCS: 01961; 36415; 80305-QW; 85025; 85027; 86850; 86900; 86901; A9270-GY; J0690; J1885; J2274; J2590; J2704; J3010; J7120; U0002

== ENCOUNTER 2020-11-16 15:47 | Emergency (ER) | payer MEDICAID, OTHER ==
[2020-11-16 15:59] VITALS: BP 104/66; PULSE 101
--- NOTE | 2020-11-16 18:50 | EDM.PDOC ---
Scribed by Shalonda Lowe 11/16/20 [id number] for Heidi Wynne NP ED HPI GENERAL MEDICAL PROBLEM - General Chief Complaint: Skin Complaint Stated Complaint: BUMP ON FOREHEAD Time Seen by Provider: 11/16/20 17:03 Source of Information: Reports: Patient, RN, RN Notes Reviewed History Limitations: Reports: No Limitations - History of Present Illness INITIAL COMMENTS - FREE TEXT/NARRATIVE: Patient presents to ER with complaint of red painful sore to center of forehead (between the eyes/bridge of the nose). Began yesterday, unsure if bug bite or pimple. It is giving her a headache. Denies chances of . No fever or chills. Onset Date: 11/15/20 Duration: Getting Worse Location: Reports: Other (forehead) Quality: Reports: Ache Severity: Moderate Improves with: Reports: None Worsens with: Reports: None Associated Symptoms: Reports: No Other Symptoms Face/Facial Pain Score (Numeric/FACES): 3 - Related Data Allergies Allergy/AdvReac Type Severity Reaction Status Date / Time No Known Allergies Allergy Verified 11/16/20 15:58 Past Medical History - Past Health History Medical/Surgical History: Denies Medical/Surgical History Cardiovascular History: Reports: None Respiratory History: Reports: None Gastrointestinal History: Reports: None Genitourinary History: Reports: UTI, Recurrent TERMINAL CARMAN History: Reports: , Spontaneous Musculoskeletal History: Reports: Fracture Neurological History: Reports: None Psychiatric History: Reports: Anxiety, Depression Endocrine/Metabolic History: Reports: None Hematologic History: Reports: Anemia Immunologic History: Reports: None Oncologic (Cancer) History: Reports: None Dermatologic History: Reports: None - Infectious Disease History Infectious Disease History: Reports: Hepatitis C - Past Surgical History Head Surgeries/Procedures: Reports: None HEENT Surgical History: Reports: Oral Surgery GI Surgical History: Reports: Appendectomy Female Surgical History: Reports: Section Social & Family History - Family History Family Medical History: No Pertinent Family History - Tobacco Use Tobacco Use Status *Q: Never Tobacco User Second Hand Smoke Exposure: No - Caffeine Use Caffeine Use: Reports: Coffee, Soda - Recreational Drug Use Recreational Drug Use: Yes Recreational Drug Type: Reports: Marijuana/Hashish Other Recreational Drug Type: smoked today - Sexual History Sexual History: Reports: Sexually Active - Living Situation & Occupation Living situation: Reports: with Family ED ROS GENERAL - Review of Systems Review Of Systems: Comprehensive ROS is negative, except as noted in HPI. ED EXAM, SKIN/RASH Exam: See Below Exam Limited By: No Limitations General Appearance: Alert, WD/WN, No Apparent Distress Eye Exam: Bilateral Eye: EOMI, Normal Inspection, PERRL Ears: Normal External Exam, Normal Canal, Hearing Grossly Normal, Normal TMs Nose: Normal Inspection, Normal Mucosa, No Blood Throat/Mouth: Normal Inspection, Normal Lips, Normal Teeth, Normal Gums, Normal Oropharynx, Normal Voice, No Airway Compromise Head: Other ([id number] abscess to center of forehead) Neck: Normal Inspection, Supple, Non-Tender, Full Range of Motion Respiratory/Chest: No Respiratory Distress, Lungs Clear, Normal Breath Sounds, No Accessory Muscle Use, Chest Non-Tender Cardiovascular: Normal Peripheral Pulses, Regular Rate, Rhythm, No Edema, No Gallop, No JVD, No Murmur, No Rub GI/Abdominal: Normal Bowel Sounds, Soft, Non-Tender, No Organomegaly, No Distention, No Abnormal Bruit, No Mass (Female) Exam: Deferred Rectal (Female) Exam: Deferred Back Exam: Normal Inspection, Full Range of Motion, NT Extremities: Normal Inspection, Normal Range of Motion, Non-Tender, No Pedal Edema, Normal Capillary Refill Neurological: Alert, Oriented, CN II-XII Intact, Normal Cognition, Normal Gait, Normal Reflexes, No Motor/Sensory Deficits Psychiatric: Normal Affect, Normal Mood Skin: Other ([id number] abscess center of forehead between eyebrows.) Lymphatic: No Adenopathy Course - Vital Signs Last Recorded V/S: Last Vital Signs Temp 97.9 F 11/16/20 15:55 Pulse 101 H 11/16/20 15:55 Resp 16 11/16/20 15:55 BP 104/66 11/16/20 15:55 Pulse Ox 99 11/16/20 15:55 Departure - Departure Time of Disposition: 18:00 Disposition: Left Without Being Seen 07 Condition: Good Clinical Impression: Abscess - Discharge Information *PRESCRIPTION DRUG MONITORING PROGRAM REVIEWED*: No *COPY OF PRESCRIPTION DRUG MONITORING REPORT IN PATIENT ALICIA: No Forms: ED Department Discharge Additional Instructions: Patient sent to the waiting room until we could take a closer look at her abscess/sore on her forehead, as an ambulance was arriving and no beds available. Patient left without being seen again. Sepsis Event Note (ED) - Evaluation Sepsis Screening Result: No Definite Risk I have read and agree with the documentation that has been completed regarding this visit. By signing this record, I attest that the documentation was completed in my physical presence and is an accurate record of the encounter.
== END 2020-11-16 19:26 | disposition left against medical advice (07) ==
LOC: DL.ED 15:47
DX: L02.01 Cutaneous abscess of face (principal)
CPT/HCPCS: 99282

== ENCOUNTER 2020-11-19 07:49 | Emergency (ER) | payer MEDICAID ==
[2020-11-19] MEDS ORDERED: Bacitracin Oint 1 GM U/D Packet TOP ONE (08:08)
[2020-11-19] MEDS ORDERED: Lidocaine 1% 30 ML SDV INJECT ONE (08:08)
--- NOTE | 2020-11-19 08:08 | EDM.PDOC ---
ED HPI GENERAL MEDICAL PROBLEM - General Stated Complaint: BUMP ON FOREHEAD Time Seen by Provider: 11/19/20 08:01 Source of Information: Reports: Patient, RN, RN Notes Reviewed History Limitations: Reports: No Limitations - History of Present Illness INITIAL COMMENTS - FREE TEXT/NARRATIVE: Patient presents to the ED via personal vehicle with complaints to erythematous raised sore to the low, mid forehead between her eyebrows. She states she first noted the sore upon awakening three days ago; she feels as if it has progressively worsened in that time. She has attempted to place warm compresses on it with little to no alleviation of pain or swelling. She denies a history of similar skin infections and denies MRSA infection but notes her son has been diagnosed with MRSA. She denies recent illness, fever, shaking chills, palpitations, nausea, vomiting, or diarrhea. - Related Data Allergies Allergy/AdvReac Type Severity Reaction Status Date / Time No Known Allergies Allergy Verified 11/16/20 15:58 Home Meds: Home Meds . [No Known Home Meds] 11/19/20 [History] Past Medical History - Past Health History Medical/Surgical History: Denies Medical/Surgical History Cardiovascular History: Reports: None Respiratory History: Reports: None Gastrointestinal History: Reports: None Genitourinary History: Reports: UTI, Recurrent [employer] History: Reports: , Spontaneous Musculoskeletal History: Reports: Fracture Neurological History: Reports: None Psychiatric History: Reports: Anxiety, Depression Endocrine/Metabolic History: Reports: None Hematologic History: Reports: Anemia Immunologic History: Reports: None Oncologic (Cancer) History: Reports: None Dermatologic History: Reports: None - Infectious Disease History Infectious Disease History: Reports: Hepatitis C - Past Surgical History Head Surgeries/Procedures: Reports: None HEENT Surgical History: Reports: Oral Surgery GI Surgical History: Reports: Appendectomy Female Surgical History: Reports: Section Social & Family History - Family History Family Medical History: No Pertinent Family History - Caffeine Use Caffeine Use: Reports: Coffee, Soda - Sexual History Sexual History: Reports: Sexually Active - Living Situation & Occupation Living situation: Reports: with Family ED ROS GENERAL - Review of Systems Review Of Systems: Comprehensive ROS is negative, except as noted in HPI. ED EXAM, SKIN/RASH Exam: See Below Exam Limited By: No Limitations General Appearance: Alert, No Apparent Distress Eye Exam: Bilateral Eye: EOMI, Normal Inspection, PERRL (3mm) Nose: Normal Inspection, Normal Mucosa, No Blood Throat/Mouth: Normal Inspection, Normal Voice, No Airway Compromise Head: Facial Swelling (In between eyebrows), Facial Tenderness (In between eyebrows) Neck: Normal Inspection, Supple, Non-Tender, Full Range of Motion. No: Lymphadenopathy (L), Lymphadenopathy (R) Respiratory/Chest: No Respiratory Distress, Lungs Clear, Normal Breath Sounds, No Accessory Muscle Use, Chest Non-Tender Cardiovascular: Normal Peripheral Pulses, Regular Rate, Rhythm, No Edema, No Gallop, No JVD, No Murmur, No Rub Extremities: Normal Inspection, Normal Range of Motion, Non-Tender, No Pedal Edema, Normal Capillary Refill Neurological: Alert, Oriented, CN II-XII Intact, Normal Cognition, Normal Gait, No Motor/Sensory Deficits Psychiatric: Normal Affect, Normal Mood Skin: Warm, Dry, Normal Color, Wound/Incision (Erythematous, raised closed bump to forehead between brows; Palpation reveals demarcated sack) Location, Skin: Face (Between eyebrows) Characteristics: Erythematous Associated features: Warmth, Tenderness, Swelling, Inflammation. No: Crusting, Weeping ED SKIN PROCEDURES - I&D Site: Midline forehead, between eyebrows Skin Prep: Chlorhexidine (Hibiciens), Sterile Drape Local Anesthesia: Lidocaine: 1% Plain Local Anesthetic Volume: 5cc Area Incised With: Other (18 gauge needle) Drainage: Purulent, Bloody, Moderate Amount Probed to Break Up Loculations: Yes Packed With: None Sterile Dressinx4(s) Complications: No Course - Vital Signs Last Recorded V/S: Last Vital Signs Temp 96.1 F L 11/19/20 07:55 Pulse 92 11/19/20 07:55 Resp 16 11/19/20 07:55 BP 125/76 11/19/20 07:55 Pulse Ox 100 11/19/20 07:55 - Orders/Labs/Meds Meds: Medications Discontinued Medications Generic Name Dose Route Start Last Admin Trade Name Teraq PRN Reason Stop Dose Admin Bacitracin 1 dose 11/19/20 08:08 11/19/20 08:31 Bacitracin Oint 1 Gm U/D Packet TOP 11/19/20 08:09 1 dose ONETIME ONE Administration Ibuprofen 400 mg 11/19/20 08:41 11/19/20 08:48 Ibuprofen 400 Mg Tab PO 11/19/20 08:42 400 mg ONETIME ONE Administration Lidocaine HCl 30 ml 11/19/20 08:08 11/19/20 08:31 Lidocaine 1% 30 Ml Sdv INJECT 11/19/20 08:09 30 ml ONETIME ONE Administration - Re-Assessments/Exams Free Text/Narrative Re-Assessment/Exam: 11/19/20 I&D performed to forehead without complications. Ibuprofen administered follow procedure as patient verbalized c/o headache. Wound culture obtained; will treat empirically with Doxycycline against MRSA given patient's history. Supportive cares, as well as red flag signs and symptoms which would warrant reevaluation, reviewed. Patient verbalized understanding and agreement with the plan of care. Departure - Departure Time of Disposition: 08:42 Disposition: Home, Self-Care 01 Condition: Good Clinical Impression: Facial abscess Cellulitis Qualifiers: Site of cellulitis: face Qualified Code(s): L03.211 - Cellulitis of face - Discharge Information *PRESCRIPTION DRUG MONITORING PROGRAM REVIEWED*: Not Applicable *COPY OF PRESCRIPTION DRUG MONITORING REPORT IN PATIENT ALICIA: Not Applicable Instructions: Skin Abscess, [id number], Cellulitis, Adult, [id number] Forms: ED Department Discharge Additional Instructions: Rx: Doxycycline Rx: ibuprofen Rx: acetaminophen 1.) Take all of your antibiotic until it is gone. 2.) Keep wound clean and dry; change bandage two times daily and as needed. 3.) You may take ibuprofen (Advil/Motrin) 400mg every six hours, as pain and swelling persist. You may also take acetaminophen (Tylenol) 650mg every six hours, as pain persists. You may stagger these medications so you are receiving a dose every three hours. 4.) Follow up with your primary care provider, or return to the emergency department, with any fever, shaking chills, heart palpitations, or pus-like drainage from the wound despite taking your antibiotic.
[2020-11-19 08:14] VITALS: BP 125/76; PULSE 92
[2020-11-19] MEDS ORDERED: Ibuprofen 400 MG Tab PO ONE (08:41)
== END 2020-11-19 09:02 | disposition home or self-care (01) ==
LOC: DL.ED 07:49
DX: L03.211 Cellulitis of face (principal); L02.01 Cutaneous abscess of face
CPT/HCPCS: 10060; 87070; 87077; 87186; 99283-25; A9270-GY

== ENCOUNTER 2021-10-31 07:55 | Inpatient (IN) | payer MEDICAID, OTHER ==
[2021-10-31] MEDS ORDERED: Sodium Chloride 0.9% 10 ML Syringe FLUSH PRN (09:01)
[2021-10-31] MEDS ORDERED: Sodium Chloride 0.9% 1,000 ML IV SCH ×2 (09:15)
[2021-10-31 09:29] LABS: BENZODIAZEPINE,URINE NEGATIVE (NEGATIVE); MDMA (ECSTASY), URINE NEGATIVE (NEGATIVE); METHADONE,URINE NEGATIVE (NEGATIVE); METHAMPHETAMINES,URINE POSITIVE (NEGATIVE); OPIATES,URINE NEGATIVE (NEGATIVE)
[2021-10-31 09:30] LABS: BARBITURATES,URINE NEGATIVE (NEGATIVE); OXYCODONE,URINE NEGATIVE (NEGATIVE); TCA,URINE NEGATIVE (NEGATIVE)
[2021-10-31] MEDS ORDERED: hydrOXYzine HCl 25 MG Tab PO ONE (09:30)
[2021-10-31] MEDS ORDERED: Fluconazole 100 MG Tab PO ONE (10:00)
[2021-10-31] MEDS ORDERED: cefTRIAXone 1 GM in Sodium Chloride 0.9% 50 ML IV ONE (11:30)
[2021-10-31] MEDS ORDERED: Oxytocin/Normal Saline 60 UNIT/1,000 ML BAG ONE (11:49)
[2021-10-31] MEDS ORDERED: Oxytocin 10 Units/1 ML SDV IM PRN (11:57)
[2021-10-31] MEDS ORDERED: Citric Acid/Sodium Citrate Solution 30 ML Cup PO ONE (11:57)
[2021-10-31] MEDS ORDERED: Methylergonovine 0.2 MG Tab PO PRN (11:57)
[2021-10-31] MEDS ORDERED: Carboprost Tromethamine 250 MCG/1 ML Amp IM PRN (11:57)
[2021-10-31] MEDS ORDERED: Tranexamic Acid 1,000 MG in Sodium Chloride 0.9% 100 ML IV PRN ×2 (11:57→13:47)
[2021-10-31] MEDS ORDERED: Oxytocin/Normal Saline 30 UNIT/500 ML BAG IV SCH (12:00)
[2021-10-31] MEDS ORDERED: ceFAZolin 2 GM in Premix Bag 1 BAG IV ONE (12:00)
[2021-10-31] MEDS ORDERED: Lactated Ringers 1,000 ML IV SCH ×2 (12:00)
[2021-10-31] MEDS ORDERED: ePHEDrine 50 MG/ML SDV IVPUSH PRN (13:47)
[2021-10-31] MEDS ORDERED: Naloxone 2 MG/2 ML Syringe IVPUSH PRN (13:47)
[2021-10-31] MEDS ORDERED: Ondansetron 4 MG/2 ML SDV IVPUSH PRN (13:47)
[2021-10-31] MEDS ORDERED: diphenhydrAMINE 50 MG/ML SDV IVPUSH PRN (13:47)
[2021-10-31] MEDS ORDERED: Methylergonovine 0.2 MG/1 ML Amp IM PRN (13:47)
[2021-10-31] MEDS ORDERED: Acetaminophen 325 MG Tab PO PRN (13:47)
[2021-10-31] MEDS ORDERED: Acetaminophen/oxyCODONE 325-5 MG Tab PO PRN (13:47)
[2021-10-31] MEDS ORDERED: Misoprostol 400 MCG (4 X 100 MCG TAB) RECTAL PRN (13:47)
[2021-10-31] MEDS ORDERED: Lactated Ringers 1,000 ML IV ONE (14:29)
[2021-10-31] MEDS ORDERED: Ketorolac 30 MG/ML SDV IVPUSH ONE (14:29)
[2021-10-31] MEDS ORDERED: Ondansetron 4 MG/2 ML SDV IV ONE (14:29)
[2021-10-31] MEDS ORDERED: Midazolam 1 MG/ML 2 ML SDV IV ONE (14:29)
[2021-10-31] MEDS ORDERED: Morphine PF 10 MG/10 ML SDV IV ONE (14:29)
[2021-10-31] MEDS ORDERED: Dexamethasone 4 MG/ML SDV IV ONE (14:29)
[2021-10-31] MEDS ORDERED: Sodium Chloride 0.9% 10 ML Syringe IV ONE (14:29)
[2021-10-31] MEDS ORDERED: ePHEDrine 50 MG/ML SDV IV ONE (14:29)
[2021-10-31] MEDS ORDERED: Oxytocin/Normal Saline 30 UNIT/500 ML BAG IV ONE (14:29)
[2021-10-31] MEDS: Lactated Ringers 1,000 ML IV SCH (16:12)
[2021-10-31 16:42] LABS: PHENCYCLIDINE,URINE NEGATIVE (NEGATIVE)
[2021-10-31 16:44] LABS: AMPHETAMINES,URINE POSITIVE (NEGATIVE)
[2021-10-31] MEDS: Simethicone 80 MG Tab.Chew PO SCH ×2 (17:00→22:07)
[2021-10-31] MEDS: Ketorolac 30 MG/ML SDV IVPUSH SCH (19:47)
[2021-10-31] MEDS ORDERED: Promethazine 25 MG/ML SDV IM ONE (20:24)
[2021-10-31] MEDS ORDERED: Sodium Chloride 0.9% 10 ML Syringe FLUSH SCH (21:00)
[2021-10-31] MEDS: Cephalexin 500 MG Cap PO SCH (21:21)
[2021-11-01] MEDS: Lactated Ringers 1,000 ML IV SCH ×2 (00:04→07:21)
[2021-11-01] MEDS: Cephalexin 500 MG Cap PO SCH ×5 (00:05→23:46)
[2021-11-01] MEDS: Ketorolac 30 MG/ML SDV IVPUSH SCH ×2 (01:39→07:17)
[2021-11-01] MEDS ORDERED: Measles, Mumps & Rubella Vaccine 0.5 ML SDV SUBCUT ONE (09:00)
[2021-11-01] MEDS ORDERED: Ferrous Sulfate 325 MG Tab PO SCH (09:00)
[2021-11-01] MEDS: Prenatal Multivitamin with Calcium/Folic Acid/Iron Tab PO SCH (09:18)
[2021-11-01] MEDS: Simethicone 80 MG Tab.Chew PO SCH ×4 (09:18→21:14)
[2021-11-01] MEDS: Ferrous Sulfate 325 MG Tab PO SCH ×2 (12:35→17:34)
[2021-11-01] MEDS: Measles, Mumps & Rubella Vaccine 0.5 ML SDV SUBCUT ONE ×2 (12:38→15:05)
[2021-11-01] MEDS: Acetaminophen/oxyCODONE 325-5 MG Tab PO PRN ×3 (14:02→23:44)
[2021-11-01] MEDS: Ibuprofen 800 MG Tab PO PRN (17:33)
[2021-11-01] MEDS: Docusate Sodium 100 MG Cap PO PRN (17:37)
[2021-11-02] MEDS: Ibuprofen 800 MG Tab PO PRN (04:31)
[2021-11-02] MEDS: Acetaminophen/oxyCODONE 325-5 MG Tab PO PRN ×2 (07:31→12:37)
[2021-11-02] MEDS: Cephalexin 500 MG Cap PO SCH ×2 (07:41→12:40)
[2021-11-02] MEDS: Ferrous Sulfate 325 MG Tab PO SCH ×2 (08:00→12:40)
[2021-11-02] MEDS: Prenatal Multivitamin with Calcium/Folic Acid/Iron Tab PO SCH (08:45)
[2021-11-02] MEDS: Simethicone 80 MG Tab.Chew PO SCH ×2 (08:45→12:40)
[2021-11-02] MEDS: Docusate Sodium 100 MG Cap PO PRN (08:45)
[2021-11-02] MEDS ORDERED: Cephalexin 500 MG Cap ONE (13:27)
[2021-11-02] MEDS ORDERED: Acetaminophen/oxyCODONE 325-5 MG Tab ONE (13:27)
[2021-11-02] MEDS ORDERED: Acetaminophen/oxyCODONE 325-5 MG Tab PO ONE (14:29)
[2021-11-02 14:54] VITALS: BP 132/84; PULSE 80
[2021-11-03 12:42] LABS: C.TRACHOMATIS BY TMA Negative (Negative); N.GONORRHOEAE BY TMA Negative (Negative)
== END 2021-11-02 14:30 | disposition home or self-care (01) | DRG 787 ==
LOC: DL.OBCHECK 07:55 → DL.OB 09:59 → OBSVTOIN 13:07 → DL.OB 13:07
PROVIDERS: ADMIT Family Medicine; ATTEND Family Medicine
PROC: 10D00Z1 Extraction of Products of Conception, Low, Open Approach (ICD-10-PCS; principal; 2021-10-31)
PROC: 3E0234Z Introduction of Serum, Toxoid and Vaccine into Muscle, Percutaneous Approach (ICD-10-PCS; 2021-10-31)
PROC: 30233N1 Transfusion of Nonautologous Red Blood Cells into Peripheral Vein, Percutaneous Approach (ICD-10-PCS; 2021-10-31)
DX: O60.14X0 Preterm labor third trimester with preterm delivery third trimester, not applicable or unspecified (principal); O99.324 Drug use complicating childbirth; O23.43 Unspecified infection of urinary tract in pregnancy, third trimester; N39.0 Urinary tract infection, site not specified; O34.211 Maternal care for low transverse scar from previous cesarean delivery; Z20.822 Contact with and (suspected) exposure to COVID-19; F15.10 Other stimulant abuse, uncomplicated; O99.344 Other mental disorders complicating childbirth; F32.A Depression, unspecified; O99.62 Diseases of the digestive system complicating childbirth; D64.9 Anemia, unspecified; F12.90 Cannabis use, unspecified, uncomplicated; Z23 Encounter for immunization; Z37.0 Single live birth; Z3A.36 36 weeks gestation of pregnancy
CPT/HCPCS: 36415; 36430; 80305-QW; 81001; 85025; 85027; 86850; 86900; 86901; 86920; 86922; 87077; 87081; 87186; 87210; 87491; 87522; 87591; 90707; A9270-GY; J0690; J0696; J1100; J1885; J2250; J2270; J2405; J2550; J2590; J3490; J7030; J7120; P9016; U0002

== ENCOUNTER 2021-11-08 04:15 | Emergency (ER) | payer MEDICAID ==
[2021-11-08 04:37] VITALS: BP 160/117; PULSE 100
[2021-11-08] MEDS ORDERED: Sodium Chloride 0.9% 10 ML Syringe FLUSH PRN (05:02)
[2021-11-08] MEDS ORDERED: Labetalol 20 MG/4 ML Syringe IVPUSH ONE ×3 (05:12→06:35)
[2021-11-08 05:22] LABS: ANION GAP 15.7 mEq/L (7-13); CHLORIDE,CL 103 mmol/L (98-107); SODIUM,NA 139 mmol/L (136-145)
[2021-11-08 06:00] LABS: AMPHETAMINES,URINE POSITIVE (NEGATIVE); BARBITURATES,URINE NEGATIVE (NEGATIVE); BENZODIAZEPINE,URINE NEGATIVE (NEGATIVE); MDMA (ECSTASY), URINE POSITIVE (NEGATIVE); METHADONE,URINE NEGATIVE (NEGATIVE); METHAMPHETAMINES,URINE POSITIVE (NEGATIVE); OPIATES,URINE NEGATIVE (NEGATIVE); OXYCODONE,URINE NEGATIVE (NEGATIVE); PHENCYCLIDINE,URINE NEGATIVE (NEGATIVE); TCA,URINE NEGATIVE (NEGATIVE)
== END 2021-11-08 06:41 | disposition left against medical advice (07) ==
LOC: DL.ED 04:15
DX: O14.95 Unspecified pre-eclampsia, complicating the puerperium (principal); O99.893 Other specified diseases and conditions complicating puerperium; R07.89 Other chest pain
CPT/HCPCS: 36415; 51702; 71045; 80053; 80305; 81001; 82550; 82570; 83615; 83735; 84156; 84484; 84550; 85025; 85379; 93005; 96374; 96376; 99285; J3490

== ENCOUNTER 2021-11-08 12:44 | Inpatient (IN) | payer MEDICAID ==
[2021-11-08 13:30] LABS: ANION GAP 17.8 mEq/L (7-13); CHLORIDE,CL 102 mmol/L (98-107); SODIUM,NA 139 mmol/L (136-145)
[2021-11-08] MEDS ORDERED: Iopamidol 755 Mg/ML 100 ML Bottle IVPUSH ONE (14:00)
[2021-11-08 14:07] LABS: PTT,PARTIAL THROMBOPLSTIN TIME 22.6 SEC (22.0-34.0)
[2021-11-08] MEDS ORDERED: Heparin Sodium 5,000 Units/ML Vial IVPUSH ONE ×2 (15:04→20:06)
[2021-11-08] MEDS ORDERED: Heparin Sodium/0.45% NaCl 25,000 UNITS/500 ML BAG IV ONE (15:06)
[2021-11-08 17:32] LABS: AMPHETAMINES,URINE POSITIVE (NEGATIVE); BARBITURATES,URINE NEGATIVE (NEGATIVE); BENZODIAZEPINE,URINE NEGATIVE (NEGATIVE); MDMA (ECSTASY), URINE NEGATIVE (NEGATIVE); METHADONE,URINE NEGATIVE (NEGATIVE); METHAMPHETAMINES,URINE POSITIVE (NEGATIVE); OPIATES,URINE NEGATIVE (NEGATIVE); OXYCODONE,URINE NEGATIVE (NEGATIVE); PHENCYCLIDINE,URINE NEGATIVE (NEGATIVE); TCA,URINE NEGATIVE (NEGATIVE)
[2021-11-08] MEDS ORDERED: Polyethylene Glycol 3350 Powder 17 GM Packet PO PRN (17:59)
[2021-11-08] MEDS ORDERED: Bisacodyl 5 MG Tab PO PRN (17:59)
[2021-11-08] MEDS ORDERED: Sodium Chloride 0.9% 10 ML Syringe FLUSH PRN (17:59)
[2021-11-08] MEDS ORDERED: Acetaminophen/HYDROcodone 325-5 MG Tab PO PRN (17:59)
[2021-11-08] MEDS ORDERED: HYDROmorphone 0.5 MG/0.5 ML Syringe IVPUSH PRN (17:59)
[2021-11-08] MEDS ORDERED: Ondansetron 4 MG/2 ML SDV IVPUSH PRN (17:59)
[2021-11-08] MEDS ORDERED: Zolpidem 5 MG Tab PO PRN (17:59)
[2021-11-08] MEDS ORDERED: Albuterol/Ipratropium 3.0-0.5 MG/3 ML Neb Soln NEB PRN (17:59)
[2021-11-08] MEDS ORDERED: amLODIPine 5 MG Tab PO ONE (18:04)
[2021-11-08] MEDS ORDERED: hydrALAZINE 20 MG/ML SDV IVPUSH PRN (18:09)
[2021-11-08] MEDS: Labetalol 100 MG Tab PO SCH (20:44)
[2021-11-08] MEDS: Sodium Chloride 0.9% 10 ML Syringe FLUSH SCH (20:45)
[2021-11-09] MEDS: Acetaminophen 325 MG Tab PO PRN (02:17)
[2021-11-09] MEDS ORDERED: Heparin Sodium 5,000 Units/ML Vial IVPUSH ONE ×2 (03:06→15:43)
[2021-11-09] MEDS ORDERED: Heparin Sodium/0.45% NaCl 25,000 UNITS/500 ML BAG IV SCH (08:15)
[2021-11-09] MEDS ORDERED: Heparin Sodium 5,000 Units/ML Vial IVPUSH PRN (09:35)
[2021-11-09 09:47] LABS: ANION GAP 14.8 mEq/L (7-13); CHLORIDE,CL 105 mmol/L (98-107); SODIUM,NA 140 mmol/L (136-145)
[2021-11-09] MEDS: amLODIPine 5 MG Tab PO SCH (10:24)
[2021-11-09] MEDS: Sodium Chloride 0.9% 10 ML Syringe FLUSH SCH ×2 (10:24→20:56)
[2021-11-09] MEDS: Labetalol 100 MG Tab PO SCH ×2 (10:24→20:55)
[2021-11-09] MEDS: Apixaban 5 MG Tab PO SCH (20:55)
[2021-11-10 06:45] LABS: ANION GAP 16.8 mEq/L (7-13); CHLORIDE,CL 107 mmol/L (98-107); SODIUM,NA 141 mmol/L (136-145)
[2021-11-10] MEDS ORDERED: Magnesium Sulfate/Water 2 GM in Premix Bag 1 BAG IV ONE (07:24)
[2021-11-10] MEDS: Acetaminophen 325 MG Tab PO PRN (09:18)
[2021-11-10] MEDS: amLODIPine 5 MG Tab PO SCH (09:46)
[2021-11-10] MEDS: Apixaban 5 MG Tab PO SCH (09:48)
[2021-11-10] MEDS: Labetalol 100 MG Tab PO SCH (09:48)
[2021-11-10 12:07] VITALS: BP 124/72; PULSE 71
[2021-11-10] MEDS: Sodium Chloride 0.9% 10 ML Syringe FLUSH SCH (13:54)
[2021-11-10] MEDS ORDERED: Apixaban 5 MG Tab ONE (13:59)
[2021-11-10] MEDS ORDERED: Apixaban 5 MG Tab PO ONE (14:44)
== END 2021-11-10 14:45 | disposition home or self-care (01) | DRG 776 ==
LOC: DL.ED 12:44 → DL.MS 15:15
PROVIDERS: ADMIT Internal Medicine; ATTEND Internal Medicine
DX: I26.99 Other pulmonary embolism without acute cor pulmonale (principal); O15.2 Eclampsia complicating the puerperium; Z98.890 Other specified postprocedural states; O88.23 Thromboembolism in the puerperium; O16.5 Unspecified maternal hypertension, complicating the puerperium; O90.89 Other complications of the puerperium, not elsewhere classified; Z20.822 Contact with and (suspected) exposure to COVID-19; I16.0 Hypertensive urgency; D64.9 Anemia, unspecified; F19.10 Other psychoactive substance abuse, uncomplicated; E83.42 Hypomagnesemia; F41.9 Anxiety disorder, unspecified; F32.A Depression, unspecified; Z98.891 History of uterine scar from previous surgery
CPT/HCPCS: 36415; 71260; 80053; 83605; 85025; 85379; 85610; 85730; 99285; Q9967; 76770; 80048; 80305-QW; 81001; 81025; 83735; 93970; 96365; 96366; 99284; A9270-GY; J1644; J3475; J3490; U0002

== ENCOUNTER 2023-04-29 09:41 | Inpatient (IN) | payer MEDICAID ==
[~2023-04-29 09:41] MED LIST: Citric Acid/Sodium Citrate Solution 30 ML Cup PO ONE; ceFAZolin 2 GM Vial IVPUSH ONE
[2023-04-29] MEDS ORDERED: Sodium Chloride 0.9% 10 ML Syringe FLUSH PRN (10:00)
[2023-04-29] MEDS ORDERED: Lactated Ringers 1,000 ML IV SCH ×3 (10:00→23:45)
[2023-04-29] MEDS ORDERED: Carboprost Tromethamine 250 MCG/1 ML Amp IM PRN ×2 (10:00→13:16)
[2023-04-29] MEDS ORDERED: Tranexamic Acid 1,000 MG in Sodium Chloride 0.9% 100 ML IV PRN ×2 (10:00→13:16)
[2023-04-29] MEDS ORDERED: Oxytocin/Normal Saline 30 UNIT/500 ML BAG IV SCH (10:00)
[2023-04-29] MEDS: Lactated Ringers 1,000 ML IV SCH ×4 (10:00→18:12)
[2023-04-29] MEDS ORDERED: Methylergonovine 0.2 MG Tab PO PRN (10:00)
[2023-04-29] MEDS ORDERED: Sodium Chloride 0.9% 10 ML Syringe FLUSH SCH (10:00)
[2023-04-29] MEDS ORDERED: Oxytocin 10 Units/1 ML SDV IM PRN (10:00)
[2023-04-29 10:08] LABS: HEMOGLOBIN 8.4 g/dL (12.0-16.0); MEAN CORPUSCULAR HEMOGLOBIN 22.9 pg (27.0-34.0); MEAN CORPUSCULAR HGB CONC 31.1 g/dL (33.0-35.0); MEAN CORPUSCULAR VOLUME 73.6 fL (80-100); PLATELET COUNT,PLT 194 10^3/uL (150-450); RED BLOOD CELL COUNT 3.67 10^6/uL (4.2-5.4); WHITE BLOOD CELL COUNT,WBC 5.5 10^3/uL (5.0-10.0)
[2023-04-29 10:26] LABS: HEMOGLOBIN A1C 5.7 % (<5.7)
[2023-04-29 10:46] LABS: LYMPHOCYTES PERCENT MAN 27 % (20-50); MONOCYTES PERCENT MAN 6 % (2-8); SEG NEUTROPHILS PERCENT MAN 67 % (42-75)
[2023-04-29 10:52] LABS: AMPHETAMINES,URINE NEGATIVE (NEGATIVE); BARBITURATES,URINE NEGATIVE (NEGATIVE); BENZODIAZEPINE,URINE NEGATIVE (NEGATIVE); MDMA (ECSTASY), URINE NEGATIVE (NEGATIVE); METHADONE,URINE NEGATIVE (NEGATIVE); METHAMPHETAMINES,URINE NEGATIVE (NEGATIVE); OPIATES,URINE NEGATIVE (NEGATIVE); OXYCODONE,URINE NEGATIVE (NEGATIVE); PHENCYCLIDINE,URINE NEGATIVE (NEGATIVE); TCA,URINE NEGATIVE (NEGATIVE)
[2023-04-29] MEDS ORDERED: Oxytocin/Normal Saline 30 UNIT/500 ML BAG ONE (11:00)
[2023-04-29] MEDS ORDERED: Oxytocin 10 Units/1 ML SDV ONE ×2 (11:17→11:18)
[2023-04-29] MEDS ORDERED: Dexamethasone 4 MG/ML SDV ONE (11:17)
[2023-04-29] MEDS ORDERED: Ketorolac 30 MG/ML SDV ONE ×2 (11:17→11:38)
[2023-04-29] MEDS ORDERED: Ondansetron 4 MG/2 ML SDV ONE (11:18)
[2023-04-29] MEDS ORDERED: ceFAZolin 2 GM Vial ONE (11:18)
[2023-04-29] MEDS ORDERED: Oxytocin 10 Units/1 ML SDV IV ONE (12:59)
[2023-04-29] MEDS ORDERED: Ketorolac 30 MG/ML SDV IVPUSH ONE (12:59)
[2023-04-29] MEDS ORDERED: Morphine PF 10 MG/10 ML SDV IV ONE (12:59)
[2023-04-29] MEDS ORDERED: Dexamethasone 4 MG/ML SDV IV ONE (12:59)
[2023-04-29] MEDS ORDERED: Ondansetron 4 MG/2 ML SDV IV ONE (12:59)
[2023-04-29] MEDS ORDERED: Naloxone 2 MG/2 ML Syringe IVPUSH PRN (13:16)
[2023-04-29] MEDS ORDERED: Ondansetron 4 MG/2 ML SDV IVPUSH PRN (13:16)
[2023-04-29] MEDS ORDERED: Methylergonovine 0.2 MG/1 ML Amp IM PRN (13:16)
[2023-04-29] MEDS ORDERED: diphenhydrAMINE 50 MG/ML SDV IVPUSH PRN (13:16)
[2023-04-29] MEDS ORDERED: Misoprostol 400 MCG (4 X 100 MCG TAB) RECTAL PRN (13:16)
[2023-04-29] MEDS ORDERED: Acetaminophen 325 MG Tab PO PRN (13:16)
[2023-04-29] MEDS ORDERED: ePHEDrine 50 MG/ML SDV IVPUSH PRN (13:16)
[2023-04-29] MEDS ORDERED: Promethazine 25 MG/ML SDV ONE (14:16)
[2023-04-29] MEDS ORDERED: Promethazine 25 MG/ML SDV IM ONE (14:21)
[2023-04-29] MEDS: Simethicone 80 MG Tab.Chew PO SCH ×2 (18:09→21:24)
[2023-04-29] MEDS: Ketorolac 30 MG/ML SDV IVPUSH SCH ×2 (18:10→23:54)
[2023-04-29] MEDS: Docusate Sodium 100 MG Cap PO PRN (21:24)
[2023-04-29] MEDS ORDERED: Lactated Ringers 1,000 ML IV ONE (22:26)
[2023-04-30] MEDS ORDERED: Enoxaparin 40 MG/0.4 ML Syringe SUBCUT SCH (00:30)
[2023-04-30] MEDS: Ketorolac 30 MG/ML SDV IVPUSH SCH (05:50)
[2023-04-30 06:05] LABS: HEMATOCRIT 21.2 % (37.0-47.0); MEAN CORPUSCULAR HEMOGLOBIN 22.3 pg (27.0-34.0); MEAN CORPUSCULAR HGB CONC 29.7 g/dL (33.0-35.0); MEAN CORPUSCULAR VOLUME 74.9 fL (80-100); RED BLOOD CELL COUNT 2.83 10^6/uL (4.2-5.4); WHITE BLOOD CELL COUNT,WBC 9.2 10^3/uL (5.0-10.0)
[2023-04-30 06:17] LABS: HEMOGLOBIN 6.3 g/dL (12.0-16.0)
[2023-04-30] MEDS: Simethicone 80 MG Tab.Chew PO SCH ×5 (07:40→21:38)
[2023-04-30] MEDS: Prenatal Multivitamin with Calcium/Folic Acid/Iron Tab PO SCH ×2 (07:55→10:03)
[2023-04-30] MEDS: Docusate Sodium 100 MG Cap PO PRN ×2 (07:55→21:38)
[2023-04-30] MEDS: Ferrous Sulfate 325 MG Tab PO SCH (07:55)
[2023-04-30] MEDS: Acetaminophen/oxyCODONE 325-5 MG Tab PO PRN ×4 (07:59→23:57)
[2023-04-30] MEDS: Ibuprofen 800 MG Tab PO PRN ×2 (13:45→21:38)
[2023-04-30] MEDS ORDERED: diphenhydrAMINE 25 MG Tab PO PRN (16:48)
[2023-04-30] MEDS: Enoxaparin 40 MG/0.4 ML Syringe SUBCUT SCH (21:38)
[2023-05-01] MEDS: Acetaminophen/oxyCODONE 325-5 MG Tab PO PRN ×5 (04:17→23:59)
[2023-05-01] MEDS: Ibuprofen 800 MG Tab PO PRN ×3 (05:53→23:59)
[2023-05-01 06:42] LABS: HEMATOCRIT 26.6 % (37.0-47.0); HEMOGLOBIN 8.4 g/dL (12.0-16.0); MEAN CORPUSCULAR HEMOGLOBIN 24.2 pg (27.0-34.0); MEAN CORPUSCULAR HGB CONC 31.6 g/dL (33.0-35.0); MEAN CORPUSCULAR VOLUME 76.7 fL (80-100); RED BLOOD CELL COUNT 3.47 10^6/uL (4.2-5.4); WHITE BLOOD CELL COUNT,WBC 8.1 10^3/uL (5.0-10.0)
[2023-05-01] MEDS: Simethicone 80 MG Tab.Chew PO SCH ×4 (08:30→21:38)
[2023-05-01] MEDS: Prenatal Multivitamin with Calcium/Folic Acid/Iron Tab PO SCH (08:30)
[2023-05-01] MEDS: Docusate Sodium 100 MG Cap PO PRN ×2 (08:30→21:38)
[2023-05-01] MEDS: Ferrous Sulfate 325 MG Tab PO SCH (08:30)
[2023-05-01 15:58] LABS: APPEARANCE,URINE CLEAR (CLEAR); BILIRUBIN,URINE NEGATIVE (NEGATIVE); COLOR,URINE YELLOW (YELLOW); GLUCOSE,URINE NEGATIVE (NEGATIVE); KETONES,URINE NEGATIVE (NEGATIVE); LEUKOCYTE ESTERASE,URINE NEGATIVE (NEGATIVE); NITRITE,URINE NEGATIVE (NEGATIVE); OCCULT BLOOD,URINE LARGE (NEGATIVE); PROTEIN,URINE NEGATIVE (NEGATIVE); UROBILINOGEN,URINE 0.2 mg/dL (0.2-1.0)
[2023-05-01] MEDS ORDERED: Clindamycin in 0.9 % Sod Chlor 900 MG in Premix Bag 1 BAG IV SCH ×2 (16:00)
[2023-05-01 16:02] LABS: HEMATOCRIT 27.6 % (37.0-47.0); HEMOGLOBIN 8.7 g/dL (12.0-16.0); MEAN CORPUSCULAR HEMOGLOBIN 23.8 pg (27.0-34.0); MEAN CORPUSCULAR HGB CONC 31.5 g/dL (33.0-35.0); MEAN CORPUSCULAR VOLUME 75.6 fL (80-100); PLATELET COUNT,PLT 171 10^3/uL (150-450); RED BLOOD CELL COUNT 3.65 10^6/uL (4.2-5.4); WHITE BLOOD CELL COUNT,WBC 10.1 10^3/uL (5.0-10.0)
[2023-05-01 16:12] LABS: BACTERIA,URINE FEW /HPF (0-FEW/HPF); EPITHELIAL CELLS,URINE MODERATE /HPF (NOT SEEN); RBC,URINE 50-75 /HPF (0-5); WBC,URINE 0-5 /HPF (0-5/HPF)
[2023-05-01] MEDS ORDERED: Clindamycin in 0.9 % Sod Chlor 300 MG in Premix Bag 1 BAG IV ONE ×2 (16:15)
[2023-05-01] MEDS ORDERED: Clindamycin in 0.9 % Sod Chlor 600 MG in Premix Bag 1 BAG IV ONE ×2 (16:15)
[2023-05-01 16:17] LABS: LYMPHOCYTES PERCENT MAN 13 % (20-50); MONOCYTES PERCENT MAN 6 % (2-8); SEG NEUTROPHILS PERCENT MAN 81 % (42-75)
[2023-05-01] MEDS: Ampicillin 2 GM Vial IVPUSH SCH ×2 (16:20→17:49)
[2023-05-01] MEDS: Gentamicin 280 MG in Sodium Chloride 0.9% 100 ML IV SCH ×2 (16:30→17:50)
[2023-05-01] MEDS: SOD CHLOR 0.9% ONE ×2 (16:52→17:25)
[2023-05-01] MEDS: CLINDAMYCIN ONE ×2 (16:52→17:25)
[2023-05-01] MEDS: Enoxaparin 40 MG/0.4 ML Syringe SUBCUT SCH (21:38)
[2023-05-01] MEDS: Clindamycin in 0.9 % Sod Chlor 900 MG in Premix Bag 1 BAG IV SCH ×2 (23:59)
[2023-05-02] MEDS ORDERED: Clindamycin in 0.9 % Sod Chlor 900 MG in Premix Bag 1 BAG IV SCH ×2
[2023-05-02] MEDS: Acetaminophen/oxyCODONE 325-5 MG Tab PO PRN ×4 (04:24→22:08)
[2023-05-02] MEDS: Ampicillin 2 GM Vial IVPUSH SCH ×4 (06:15→17:31)
[2023-05-02] MEDS ORDERED: Clindamycin in 0.9 % Sod Chlor 100 ML ONE ×2 (07:17→14:57)
[2023-05-02] MEDS: Clindamycin in 0.9 % Sod Chlor 900 MG in Premix Bag 1 BAG IV SCH ×4 (08:46→16:32)
[2023-05-02] MEDS: Prenatal Multivitamin with Calcium/Folic Acid/Iron Tab PO SCH (08:48)
[2023-05-02] MEDS: Ferrous Sulfate 325 MG Tab PO SCH (08:48)
[2023-05-02] MEDS: Docusate Sodium 100 MG Cap PO PRN ×2 (08:48→22:08)
[2023-05-02] MEDS: Simethicone 80 MG Tab.Chew PO SCH ×4 (08:48→22:07)
[2023-05-02] MEDS: Ibuprofen 800 MG Tab PO PRN ×2 (08:49→16:26)
[2023-05-02] MEDS: Gentamicin 280 MG in Sodium Chloride 0.9% 100 ML IV SCH ×2 (16:30→18:28)
[2023-05-02] MEDS: Enoxaparin 40 MG/0.4 ML Syringe SUBCUT SCH (22:07)
[2023-05-03] MEDS: Ampicillin 2 GM Vial IVPUSH SCH ×3 (00:36→13:03)
[2023-05-03] MEDS: Ibuprofen 800 MG Tab PO PRN (00:36)
[2023-05-03] MEDS: Clindamycin in 0.9 % Sod Chlor 900 MG in Premix Bag 1 BAG IV SCH ×4 (00:37→08:01)
[2023-05-03] MEDS: Acetaminophen/oxyCODONE 325-5 MG Tab PO PRN ×2 (02:08→08:36)
[2023-05-03] MEDS ORDERED: Bisacodyl 10 MG Supp RECTAL ONE (08:32)
[2023-05-03] MEDS: Prenatal Multivitamin with Calcium/Folic Acid/Iron Tab PO SCH (08:36)
[2023-05-03] MEDS: Ferrous Sulfate 325 MG Tab PO SCH (08:36)
[2023-05-03] MEDS: Docusate Sodium 100 MG Cap PO PRN (08:36)
[2023-05-03] MEDS: Simethicone 80 MG Tab.Chew PO SCH ×2 (08:36→13:04)
[2023-05-03 09:31] VITALS: BP 130/71; PULSE 64
[2023-05-03] MEDS ORDERED: Measles, Mumps & Rubella Vaccine 0.5 ML SDV SUBCUT ONE (10:55)
[2023-05-03] MEDS ORDERED: LACTATED RINGERS IV ONE (12:59)
[2023-05-03] MEDS ORDERED: OXYTOCIN IV ONE (12:59)
== END 2023-05-03 13:00 | disposition home or self-care (01) | DRG 787 ==
LOC: OBSVTOIN 09:41 → DL.OB 09:41 → UNDOADMOB 09:41 → INTOOBSV 09:41 → OBSVTOIN 12:22 → DL.OB 12:22
PROVIDERS: ADMIT Family Medicine; ATTEND Family Medicine
PROC: 10D00Z1 Extraction of Products of Conception, Low, Open Approach (ICD-10-PCS; principal; 2023-04-29)
PROC: 30233N1 Transfusion of Nonautologous Red Blood Cells into Peripheral Vein, Percutaneous Approach (ICD-10-PCS; 2023-04-30)
DX: O34.211 Maternal care for low transverse scar from previous cesarean delivery (principal); D62 Acute posthemorrhagic anemia; O86.4 Pyrexia of unknown origin following delivery; O86.12 Endometritis following delivery; Z37.0 Single live birth; O99.824 Streptococcus B carrier state complicating childbirth; O90.81 Anemia of the puerperium; Z3A.39 39 weeks gestation of pregnancy; Z90.49 Acquired absence of other specified parts of digestive tract
CPT/HCPCS: 01961; 36415; 36430; 59025; 59409; 71046; 80305-QW; 81001; 83036; 85007; 85025; 85027; 86850; 86900; 86901; 86920; 86922; 87086; 90707; A9270-GY; J0290; J1200; J1580; J1650; J1885; J2550; J2590; J3490; J7120; P9016

== ENCOUNTER 2023-05-06 11:27 | Emergency (ER) | payer MEDICAID ==
[2023-05-06] MEDS ORDERED: Sodium Chloride 0.9% 10 ML Syringe FLUSH PRN (11:41)
[2023-05-06 12:13] LABS: HEMATOCRIT 34.6 % (37.0-47.0); HEMOGLOBIN 10.7 g/dL (12.0-16.0); LYMPHOCYTES PERCENT AUTO 31.6 % (20.5-50.1); MEAN CORPUSCULAR HEMOGLOBIN 23.9 pg (27.0-34.0); MEAN CORPUSCULAR HGB CONC 30.9 g/dL (33.0-35.0); MEAN CORPUSCULAR VOLUME 77.2 fL (80-100); MONOCYTES PERCENT AUTO 14.5 % (2-8); NEUTROPHILS PERCENT AUTO 51.9 % (42.2-75.2); PLATELET COUNT,PLT 356 10^3/uL (150-450); RED BLOOD CELL COUNT 4.48 10^6/uL (4.2-5.4)
[2023-05-06 12:35] LABS: ALANINE AMINOTRANSFERASE,ALT 33 U/L (14-59); ALBUMIN 2.8 g/dL (3.4-5.0); ALKALINE PHOSPHATASE 108 U/L (46-116); ANION GAP 14.4 mEq/L (7-13); ASPARTATE AMNIOTRANSFERASE,AST 26 U/L (15-37); BILIRUBIN TOTAL 0.2 mg/dL (0.2-1.0); BLOOD UREA NITROGEN,BUN 15 mg/dL (7-18); BUN/CREATININE RATIO 21.1 (No establ ref range); CALCIUM 8.9 mg/dL (8.5-10.1); CARBON DIOXIDE,CO2 24 mmol/L (21-32); CHLORIDE,CL 105 mmol/L (98-107); CREATININE 0.71 mg/dL (0.55-1.02); GLUCOSE RANDOM 91 mg/dL (70-99); INR 0.8 (0.9-1.2); POTASSIUM,K 4.4 mmol/L (3.5-5.1); PROTHROMBIN TIME 8.7 SEC (9.0-12.0); PTT,PARTIAL THROMBOPLSTIN TIME 24.8 SEC (22.0-34.0); SODIUM,NA 139 mmol/L (136-145)
[2023-05-06 12:43] LABS: APPEARANCE,URINE CLEAR (CLEAR); BILIRUBIN,URINE NEGATIVE (NEGATIVE); COLOR,URINE YELLOW (YELLOW); GLUCOSE,URINE NEGATIVE (NEGATIVE); KETONES,URINE NEGATIVE (NEGATIVE); LEUKOCYTE ESTERASE,URINE NEGATIVE (NEGATIVE); NITRITE,URINE NEGATIVE (NEGATIVE); OCCULT BLOOD,URINE LARGE (NEGATIVE); PROTEIN,URINE NEGATIVE (NEGATIVE)
[2023-05-06 12:43] LABS: CORONAVIRUS COVID-19 NAA NEGATIVE (NEGATIVE); INFLUENZA A NAA NEGATIVE (NEGATIVE); INFLUENZA B NAA NEGATIVE (NEGATIVE); RESPIRATORY SYNCYTIAL VIR NAA NEGATIVE (NEGATIVE)
[2023-05-06] MEDS ORDERED: Iopamidol 755 Mg/ML 100 ML Bottle IVPUSH ONE (12:43)
[2023-05-06] MEDS ORDERED: Labetalol 100 MG Tab PO ONE (12:44)
[2023-05-06 12:48] LABS: AMPHETAMINES,URINE NEGATIVE (NEGATIVE); BARBITURATES,URINE NEGATIVE (NEGATIVE); BENZODIAZEPINE,URINE NEGATIVE (NEGATIVE); MDMA (ECSTASY), URINE NEGATIVE (NEGATIVE); METHADONE,URINE NEGATIVE (NEGATIVE); METHAMPHETAMINES,URINE NEGATIVE (NEGATIVE); OPIATES,URINE NEGATIVE (NEGATIVE); OXYCODONE,URINE NEGATIVE (NEGATIVE); PHENCYCLIDINE,URINE NEGATIVE (NEGATIVE); TCA,URINE NEGATIVE (NEGATIVE)
[2023-05-06 12:49] LABS: A/G RATIO 0.54; ESTIMATED GFR 117 mL/min (>=60)
[2023-05-06 12:59] LABS: BACTERIA,URINE RARE /HPF (0-FEW/HPF); EPITHELIAL CELLS,URINE OCCASIONAL /HPF (NOT SEEN); RBC,URINE 0-5 /HPF (0-5); WBC,URINE NOT SEEN /HPF (0-5/HPF)
[2023-05-06 13:00] LABS: MUCUS,URINE OCCASIONAL /LPF (NOT SEEN)
[2023-05-06 14:26] VITALS: BP 169/98; PULSE 68
== END 2023-05-06 14:16 | disposition home or self-care (01) ==
LOC: DL.ED 11:27
DX: O16.5 Unspecified maternal hypertension, complicating the puerperium (principal); R07.9 Chest pain, unspecified; Z87.891 Personal history of nicotine dependence; Z79.01 Long term (current) use of anticoagulants; Z79.899 Other long term (current) drug therapy
CPT/HCPCS: 0241U; 36415; 71045; 71275; 80053; 80305; 81001; 84484; 85025; 85384; 85610; 85730; 93005; 93970; 99285; A9270; Q9967

== ENCOUNTER 2023-05-30 14:45 | Emergency (ER) | payer SELFPAY ==
[2023-05-30] MEDS ORDERED: Ketorolac 30 MG/ML SDV IM ONE (15:33)
[2023-05-30] MEDS ORDERED: Acetaminophen/HYDROcodone 325-10 MG Tab PO ONE (15:34)
[2023-05-30 15:37] VITALS: BP 134/91; PULSE 90
[2023-05-30] MEDS ORDERED: Take Home: Acetaminophen/HYDROcodone 325-5 MG, 5 Tab Pack PO ONE (16:34)
== END 2023-05-30 16:46 | disposition home or self-care (01) ==
LOC: DL.ED 14:45
DX: S82.035A Nondisplaced transverse fracture of left patella, initial encounter for closed fracture (principal); I10 Essential (primary) hypertension; Z98.890 Other specified postprocedural states; Z79.899 Other long term (current) drug therapy; W18.30XA Fall on same level, unspecified, initial encounter
CPT/HCPCS: 73562-LT; 96372; 99283; 99284; A9270-GY; J1885

== ENCOUNTER 2023-09-20 13:38 | Emergency (ER) | payer SELFPAY ==
[2023-09-20 14:29] VITALS: BP 129/86; PULSE 110
[2023-09-20] MEDS: Ibuprofen 600 MG Tab PO ONE (16:13)
[2023-09-20] MEDS: Acetaminophen 500 MG Tab PO ONE (16:13)
== END 2023-09-20 16:21 | disposition left against medical advice (07) ==
LOC: DL.ED 13:38
DX: O03.9 Complete or unspecified spontaneous abortion without complication (principal); Z3A.00 Weeks of gestation of pregnancy not specified
CPT/HCPCS: 36415; 84702; 99284; A9270-GY

== ENCOUNTER 2024-03-06 13:03 | Inpatient (IN) | payer MEDICAID ==
[2024-03-06] MEDS ORDERED: Sodium Chloride 0.9% 10 ML Syringe FLUSH PRN (13:27)
[2024-03-06 13:45] LABS: EOSINOPHILS PERCENT AUTO 0.3 % (1.0-3.0); HEMATOCRIT 30.2 % (37.0-47.0); HEMOGLOBIN 9.2 g/dL (12.0-16.0); LYMPHOCYTES PERCENT AUTO 4.4 % (20.5-50.1); MEAN CORPUSCULAR HEMOGLOBIN 22.7 pg (27.0-34.0); MEAN CORPUSCULAR HGB CONC 30.5 g/dL (33.0-35.0); MEAN CORPUSCULAR VOLUME 74.6 fL (80-100); MONOCYTES PERCENT AUTO 12.3 % (2-8); PLATELET COUNT,PLT 305 10^3/uL (150-450); RED BLOOD CELL COUNT 4.05 10^6/uL (4.2-5.4); WHITE BLOOD CELL COUNT,WBC 6.6 10^3/uL (5.0-10.0)
[2024-03-06] MEDS: HYDROmorphone 1 MG/ML Syringe IVPUSH ONE (13:45)
[2024-03-06] MEDS: Sodium Chloride 0.9% 1,000 ML IV ONE ×2 (13:45→15:18)
[2024-03-06] MEDS: Ondansetron 4 MG/2 ML SDV IVPUSH ONE (13:45)
[2024-03-06 13:48] LABS: APPEARANCE,URINE CLEAR (CLEAR); BILIRUBIN,URINE NEGATIVE (NEGATIVE); COLOR,URINE DARK YELLOW (YELLOW); GLUCOSE,URINE NEGATIVE (NEGATIVE); KETONES,URINE NEGATIVE (NEGATIVE); LEUKOCYTE ESTERASE,URINE SMALL (NEGATIVE); NITRITE,URINE POSITIVE (NEGATIVE); OCCULT BLOOD,URINE LARGE (NEGATIVE); PROTEIN,URINE 100 (NEGATIVE)
[2024-03-06 13:57] LABS: AMORPHOUS SEDIMENT,URINE FEW /HPF (NOT SEEN); AMPHETAMINES,URINE POSITIVE (NEGATIVE); BACTERIA,URINE MODERATE /HPF (0-FEW/HPF); BARBITURATES,URINE NEGATIVE (NEGATIVE); BENZODIAZEPINE,URINE NEGATIVE (NEGATIVE); EPITHELIAL CELLS,URINE FEW /HPF (NOT SEEN); MDMA (ECSTASY), URINE NEGATIVE (NEGATIVE); METHADONE,URINE NEGATIVE (NEGATIVE); METHAMPHETAMINES,URINE POSITIVE (NEGATIVE); MUCUS,URINE FEW /LPF (NOT SEEN); OPIATES,URINE NEGATIVE (NEGATIVE); OXYCODONE,URINE NEGATIVE (NEGATIVE); PHENCYCLIDINE,URINE NEGATIVE (NEGATIVE); TCA,URINE NEGATIVE (NEGATIVE); WBC,URINE 20-30 /HPF (0-5/HPF)
[2024-03-06] MEDS: Ondansetron 4 MG/2 ML SDV ONE (13:58)
[2024-03-06 14:04] LABS: INR 0.9 (0.9-1.2); PROTHROMBIN TIME 9.2 SEC (9.0-12.0); PTT,PARTIAL THROMBOPLSTIN TIME 24.5 SEC (22.0-34.0)
[2024-03-06 14:11] LABS: ALANINE AMINOTRANSFERASE,ALT 33 U/L (14-59); ALBUMIN 2.8 g/dL (3.4-5.0); ALKALINE PHOSPHATASE 87 U/L (46-116); ASPARTATE AMNIOTRANSFERASE,AST 35 U/L (15-37); BILIRUBIN TOTAL 0.3 mg/dL (0.2-1.0); BLOOD UREA NITROGEN,BUN 25 mg/dL (7-18); BUN/CREATININE RATIO 19.8 (No establ ref range); C-REACTIVE PROTEIN 24.13 ng/dL (<=0.50); CALCIUM 9.8 mg/dL (8.5-10.1); CARBON DIOXIDE,CO2 24 mmol/L (21-32); CHLORIDE,CL 96 mmol/L (98-107); CREATININE 1.26 mg/dL (0.55-1.02); EST CRCL DRUG DOSING (CG) 51.17 mL/min; GLUCOSE RANDOM 140 mg/dL (70-99); LIPASE 89 U/L (16-77); MAGNESIUM 1.9 mg/dL (1.8-2.4); PROTEIN TOTAL,TP 9.1 g/dL (6.4-8.2); SODIUM,NA 133 mmol/L (136-145)
[2024-03-06 14:12] LABS: A/G RATIO 0.44; ESTIMATED GFR 59 mL/min (>=60); ETHANOL BLOOD MEDICAL < 3 mg/dL (0); LACTIC ACID 1.4 mmol/L (0.4-2.0)
[2024-03-06] MEDS: Iopamidol 612 MG/ML 100 ML Bottle IVPUSH ONE (14:20)
[2024-03-06] MEDS: Meropenem 1 GM SDV IVPUSH ONE (15:18)
[2024-03-06] MEDS ORDERED: Sennosides/Docusate Sodium 50-8.6 MG Tab PO PRN (17:18)
[2024-03-06] MEDS ORDERED: Naloxone 2 MG/2 ML Syringe IVPUSH PRN (17:18)
[2024-03-06] MEDS ORDERED: Polyethylene Glycol 3350 Powder 17 GM Packet PO PRN (17:18)
[2024-03-06] MEDS ORDERED: Ondansetron 4 MG/2 ML SDV IVPUSH PRN (17:18)
[2024-03-06] MEDS ORDERED: Magnesium Hydroxide 400 MG/5 ML Susp 30 ML Cup PO PRN (17:18)
[2024-03-06] MEDS ORDERED: Albuterol/Ipratropium 3.0-0.5 MG/3 ML Neb Soln NEB PRN (17:18)
[2024-03-06] MEDS ORDERED: Promethazine 25 MG/ML SDV IM PRN (17:18)
[2024-03-06] MEDS ORDERED: hydrALAZINE 20 MG/ML SDV IVPUSH PRN (17:21)
[2024-03-06] MEDS ORDERED: Diltiazem 25 MG/5 ML SDV IVPUSH PRN (17:21)
[2024-03-06] MEDS: VANCOmycin 1.5 GM/300 ML 1.5 GM in Premix Bag 1 BAG IV ONE (17:43)
[2024-03-06] MEDS: Acetaminophen 325 MG Tab PO PRN (18:12)
[2024-03-06] MEDS: Morphine 2 MG/ML SYRINGE IVPUSH PRN (18:13)
[2024-03-06] MEDS ORDERED: Flumazenil 0.1 MG/ML 5 ML MDV IVPUSH PRN (18:56)
[2024-03-06 19:19] LABS: HEMOGLOBIN A1C 5.1 % (<5.7)
[2024-03-06] MEDS: MVI, Adult with Vitamin K 10 ML, Folic Acid 1 MG, Thiamine 100 MG in Lactated Ringers 1... IV ONE (19:47)
[2024-03-06] MEDS: Temazepam 15 MG Cap PO PRN (19:48)
[2024-03-06] MEDS: LORazepam 2 MG/ML SDV IVPUSH ONE (19:48)
[2024-03-06] MEDS: Cefepime 1 GM Vial IVPUSH SCH (21:40)
[2024-03-07] MEDS: Acetaminophen/HYDROcodone 325-10 MG Tab PO PRN (04:02)
[2024-03-07 06:45] LABS: BASOPHILS PERCENT AUTO 0.2 % (0.0-1.0); EOSINOPHILS PERCENT AUTO 0.5 % (1.0-3.0); HEMATOCRIT 24.5 % (37.0-47.0); HEMOGLOBIN 7.3 g/dL (12.0-16.0); LYMPHOCYTES PERCENT AUTO 11.9 % (20.5-50.1); MEAN CORPUSCULAR HEMOGLOBIN 22.5 pg (27.0-34.0); MEAN CORPUSCULAR HGB CONC 29.8 g/dL (33.0-35.0); MEAN CORPUSCULAR VOLUME 75.4 fL (80-100); MONOCYTES PERCENT AUTO 25.6 % (2-8); NEUTROPHILS PERCENT AUTO 61.8 % (42.2-75.2); PLATELET COUNT,PLT 263 10^3/uL (150-450); RED BLOOD CELL COUNT 3.25 10^6/uL (4.2-5.4); WHITE BLOOD CELL COUNT,WBC 6.1 10^3/uL (5.0-10.0)
[2024-03-07 07:15] LABS: ANION GAP 7.3 mEq/L (7-13); BILIRUBIN TOTAL 0.2 mg/dL (0.2-1.0); BUN/CREATININE RATIO 9.6 (No establ ref range); C-REACTIVE PROTEIN 12.23 ng/dL (<=0.50); CALCIUM 8.5 mg/dL (8.5-10.1); CREATININE 1.15 mg/dL (0.55-1.02); EST CRCL DRUG DOSING (CG) 56.06 mL/min; MAGNESIUM 1.5 mg/dL (1.8-2.4); POTASSIUM,K 3.3 mmol/L (3.5-5.1)
[2024-03-07 07:23] LABS: A/G RATIO 0.4
[2024-03-07] MEDS: Potassium Chloride 10 MEQ Tab.ER PO SCH (08:11)
[2024-03-07] MEDS: Magnesium Sulfate/Water 2 GM in Premix Bag 1 BAG IV ONE (08:12)
[2024-03-07] MEDS: Saccharomyces Boulardii (Probiotic) 250 MG Cap PO SCH (08:12)
[2024-03-07] MEDS ORDERED: Morphine 2 MG/ML SYRINGE IVPUSH PRN (11:00)
[2024-03-07] MEDS: Sodium Chloride 0.9% 1,000 ML IV SCH (12:14)
[2024-03-07] MEDS: Ibuprofen 800 MG Tab PO ONE (13:59)
[2024-03-07] MEDS: Cefepime 1 GM Vial IVPUSH SCH (16:00)
[2024-03-07] MEDS: Ibuprofen 800 MG Tab PO SCH (20:34)
[2024-03-07] MEDS: oxyCODONE ER 10 MG TAB.ER PO SCH (20:35)
[2024-03-07] MEDS: Folic Acid 1 MG Tab PO SCH (20:35)
[2024-03-07] MEDS: Multivitamin Tab PO SCH (20:35)
[2024-03-07] MEDS: Thiamine 100 MG Tab PO ONE (20:35)
[2024-03-08 06:21] LABS: HEMATOCRIT 23.9 % (37.0-47.0); MEAN CORPUSCULAR HEMOGLOBIN 22.7 pg (27.0-34.0); MEAN CORPUSCULAR HGB CONC 28.9 g/dL (33.0-35.0); MEAN CORPUSCULAR VOLUME 78.6 fL (80-100); PLATELET COUNT,PLT 307 10^3/uL (150-450); RED BLOOD CELL COUNT 3.04 10^6/uL (4.2-5.4); WHITE BLOOD CELL COUNT,WBC 6.4 10^3/uL (5.0-10.0)
[2024-03-08 06:29] LABS: HEMOGLOBIN 6.9 g/dL (12.0-16.0); LYMPHOCYTES PERCENT AUTO 16.7 % (20.5-50.1); NEUTROPHILS PERCENT AUTO 58.6 % (42.2-75.2)
[2024-03-08 06:30] LABS: BASOPHILS PERCENT AUTO 0.2 % (0.0-1.0); EOSINOPHILS PERCENT AUTO 2.5 % (1.0-3.0)
[2024-03-08 06:43] LABS: ALBUMIN 1.9 g/dL (3.4-5.0); ANION GAP 13.1 mEq/L (7-13); BILIRUBIN TOTAL 0.2 mg/dL (0.2-1.0); BUN/CREATININE RATIO 14.5 (No establ ref range); C-REACTIVE PROTEIN 9.87 ng/dL (<=0.50); CALCIUM 8.4 mg/dL (8.5-10.1); CREATININE 0.83 mg/dL (0.55-1.02); EST CRCL DRUG DOSING (CG) 77.67 mL/min; MAGNESIUM 1.7 mg/dL (1.8-2.4); POTASSIUM,K 4.1 mmol/L (3.5-5.1); PROTEIN TOTAL,TP 6.7 g/dL (6.4-8.2)
[2024-03-08 06:44] LABS: A/G RATIO 0.4
[2024-03-08 07:06] LABS: LYMPHOCYTES PERCENT MAN 14 % (20-50); MONOCYTES PERCENT MAN 20 % (2-8); SEG NEUTROPHILS PERCENT MAN 66 % (42-75)
[2024-03-08] MEDS: Magnesium Sulfate/Water 2 GM in Premix Bag 1 BAG IV ONE (09:06)
[2024-03-08 13:24] LABS: HEMATOCRIT 25.8 % (37.0-47.0); HEMOGLOBIN 7.7 g/dL (12.0-16.0)
[2024-03-08] MEDS: Morphine 2 MG/ML SYRINGE IVPUSH PRN (16:44)
[2024-03-08] MEDS ORDERED: VANCOmycin 1.5 GM/300 ML 300 ML IV SCH (18:00)
[2024-03-08] MEDS: Sulfamethoxazole/Trimethoprim 800-160 MG Tab PO SCH (20:15)
[2024-03-09 06:23] LABS: BASOPHILS PERCENT AUTO 0.2 % (0.0-1.0); EOSINOPHILS PERCENT AUTO 5.1 % (1.0-3.0); HEMATOCRIT 23.9 % (37.0-47.0); HEMOGLOBIN 7.2 g/dL (12.0-16.0); LYMPHOCYTES PERCENT AUTO 35.2 % (20.5-50.1); MEAN CORPUSCULAR HEMOGLOBIN 24.1 pg (27.0-34.0); MEAN CORPUSCULAR HGB CONC 30.1 g/dL (33.0-35.0); MEAN CORPUSCULAR VOLUME 79.9 fL (80-100); NEUTROPHILS PERCENT AUTO 42.5 % (42.2-75.2); PLATELET COUNT,PLT 418 10^3/uL (150-450); RED BLOOD CELL COUNT 2.99 10^6/uL (4.2-5.4); WHITE BLOOD CELL COUNT,WBC 4.1 10^3/uL (5.0-10.0)
[2024-03-09 06:46] LABS: ALBUMIN 2.1 g/dL (3.4-5.0); ANION GAP 14.1 mEq/L (7-13); BILIRUBIN TOTAL 0.1 mg/dL (0.2-1.0); BUN/CREATININE RATIO 11.5 (No establ ref range); C-REACTIVE PROTEIN 6.9 ng/dL (<=0.50); CALCIUM 8.6 mg/dL (8.5-10.1); CREATININE 0.87 mg/dL (0.55-1.02); EST CRCL DRUG DOSING (CG) 74.1 mL/min; MAGNESIUM 1.6 mg/dL (1.8-2.4); POTASSIUM,K 4.1 mmol/L (3.5-5.1); PROTEIN TOTAL,TP 7.2 g/dL (6.4-8.2)
[2024-03-09 06:51] LABS: A/G RATIO 0.41
[2024-03-09 10:53] VITALS: BP 119/75; PULSE 73
== END 2024-03-09 11:11 | disposition home or self-care (01) | DRG 871 ==
LOC: DL.ED 13:03 → DL.MS 15:38 → DL.ED 16:11
PROVIDERS: ADMIT Internal Medicine; ATTEND Internal Medicine
DX: A41.51 Sepsis due to Escherichia coli [E. coli] (principal); K85.90 Acute pancreatitis without necrosis or infection, unspecified; N12 Tubulo-interstitial nephritis, not specified as acute or chronic; E87.1 Hypo-osmolality and hyponatremia; N17.9 Acute kidney failure, unspecified; I10 Essential (primary) hypertension; F10.10 Alcohol abuse, uncomplicated; F15.10 Other stimulant abuse, uncomplicated; E87.8 Other disorders of electrolyte and fluid balance, not elsewhere classified; E83.52 Hypercalcemia; E88.09 Other disorders of plasma-protein metabolism, not elsewhere classified; D50.9 Iron deficiency anemia, unspecified; Z88.5 Allergy status to narcotic agent; Z79.899 Other long term (current) drug therapy; Z90.49 Acquired absence of other specified parts of digestive tract; Z98.890 Other specified postprocedural states
CPT/HCPCS: 36415; 74177; 80053; 80202; 80305-QW; 80307; 81001; 81025; 83036; 83605; 83690; 83735; 84145; 85014; 85018; 85025; 85610; 85730; 86140; 87040; 87086; 87088; 87186; 93005; 99232; 99239; 99291; A9270-GY; J0692; J1170; J2060; J2185; J2270; J2405; J3370; J3372; J3411; J3475; J3490; J7030; J7050; J7120; Q9967

== ENCOUNTER 2024-03-21 01:16 | Emergency (ER) | payer SELFPAY ==
[2024-03-21] MEDS: Sodium Chloride 0.9% 10 ML Syringe FLUSH PRN (01:37)
[2024-03-21] MEDS: Naloxone 2 MG/2 ML Syringe IVPUSH PRN (01:37)
[2024-03-21 01:38] LABS: BASOPHILS PERCENT AUTO 0.4 % (0.0-1.0); EOSINOPHILS PERCENT AUTO 0.4 % (1.0-3.0); HEMATOCRIT 27.9 % (37.0-47.0); LYMPHOCYTES PERCENT AUTO 56.8 % (20.5-50.1); MEAN CORPUSCULAR HEMOGLOBIN 22.2 pg (27.0-34.0); MEAN CORPUSCULAR HGB CONC 28.7 g/dL (33.0-35.0); MEAN CORPUSCULAR VOLUME 77.5 fL (80-100); MONOCYTES PERCENT AUTO 9.3 % (2-8); NEUTROPHILS PERCENT AUTO 33.1 % (42.2-75.2); PLATELET COUNT,PLT 415 10^3/uL (150-450); WHITE BLOOD CELL COUNT,WBC 2.6 10^3/uL (5.0-10.0)
[2024-03-21] MEDS: Lactated Ringers 1,000 ML IV SCH (01:46)
[2024-03-21 01:53] LABS: HCG QUALITATIVE,SERUM NEGATIVE (NEGATIVE)
[2024-03-21 01:56] LABS: PROTHROMBIN TIME 9.9 SEC (9.0-12.0)
[2024-03-21 02:02] LABS: ALANINE AMINOTRANSFERASE,ALT 37 U/L (14-59); ALBUMIN 3.1 g/dL (3.4-5.0); ALKALINE PHOSPHATASE 115 U/L (46-116); ANION GAP 11.3 mEq/L (7-13); ASPARTATE AMNIOTRANSFERASE,AST 32 U/L (15-37); BILIRUBIN TOTAL 0.2 mg/dL (0.2-1.0); BLOOD UREA NITROGEN,BUN 8 mg/dL (7-18); BUN/CREATININE RATIO 8.6 (No establ ref range); CALCIUM 8.4 mg/dL (8.5-10.1); CARBON DIOXIDE,CO2 26 mmol/L (21-32); CHLORIDE,CL 107 mmol/L (98-107); CREATININE 0.93 mg/dL (0.55-1.02); EST CRCL DRUG DOSING (CG) 69.32 mL/min; GLUCOSE RANDOM 90 mg/dL (70-99); MAGNESIUM 1.9 mg/dL (1.8-2.4); POTASSIUM,K 3.3 mmol/L (3.5-5.1); PROTEIN TOTAL,TP 8.4 g/dL (6.4-8.2); SODIUM,NA 141 mmol/L (136-145)
[2024-03-21 02:16] LABS: A/G RATIO 0.58; ESTIMATED GFR 84 mL/min (>=60)
[2024-03-21 02:42] LABS: APPEARANCE,URINE CLEAR (CLEAR); BILIRUBIN,URINE NEGATIVE (NEGATIVE); COLOR,URINE YELLOW (YELLOW); GLUCOSE,URINE NEGATIVE (NEGATIVE); KETONES,URINE NEGATIVE (NEGATIVE); LEUKOCYTE ESTERASE,URINE NEGATIVE (NEGATIVE); NITRITE,URINE NEGATIVE (NEGATIVE); OCCULT BLOOD,URINE NEGATIVE (NEGATIVE); PROTEIN,URINE NEGATIVE (NEGATIVE); UROBILINOGEN,URINE 0.2 mg/dL (0.2-1.0)
[2024-03-21 02:45] LABS: AMPHETAMINES,URINE POSITIVE (NEGATIVE); BARBITURATES,URINE NEGATIVE (NEGATIVE); BENZODIAZEPINE,URINE NEGATIVE (NEGATIVE); MDMA (ECSTASY), URINE NEGATIVE (NEGATIVE); METHADONE,URINE NEGATIVE (NEGATIVE); METHAMPHETAMINES,URINE POSITIVE (NEGATIVE); OPIATES,URINE NEGATIVE (NEGATIVE); OXYCODONE,URINE NEGATIVE (NEGATIVE); PHENCYCLIDINE,URINE NEGATIVE (NEGATIVE); TCA,URINE NEGATIVE (NEGATIVE)
[2024-03-21] MEDS ORDERED: Flumazenil 0.1 MG/ML 5 ML MDV IVPUSH PRN (03:18)
[2024-03-21] MEDS: LORazepam 2 MG/ML SDV IVPUSH ONE ×2 (03:24→04:50)
[2024-03-21] MEDS: Haloperidol Lactate 5 MG/ML SDV IVPUSH ONE (04:40)
[2024-03-21 08:47] VITALS: BP 140/108; PULSE 71
[2024-03-22 07:46] LABS: HYPOCHRO 3+ /hpf; MICRO 1+ /hpf; NEUTROPHILS% 37 % (41-71)
== END 2024-03-21 16:22 | disposition home or self-care (01) ==
LOC: DL.ED 01:16
DX: D50.9 Iron deficiency anemia, unspecified (principal); F15.921 Other stimulant use, unspecified with intoxication delirium; I10 Essential (primary) hypertension; Z90.49 Acquired absence of other specified parts of digestive tract
CPT/HCPCS: 36415; 70450; 80053; 80074; 80305-QW; 80307; 81003; 83540; 83550; 83735; 84484; 84703; 85025; 85379; 85610; 93005; 93010; 96361; 96374; 96375; 96376; 99284; 99285-25; J1630; J2060; J2310; J3490; J7120

== ENCOUNTER 2024-07-18 08:56 | Emergency (ER) | payer SELFPAY ==
[2024-07-18 09:15] VITALS: BP 140/88; PULSE 104
[2024-07-18] MEDS: Fluorescein 1 MG Ophth Strip EYEBOTH ONE (09:20)
[2024-07-18] MEDS: Proparacaine 0.5% Ophth Soln 15 ML Bottle EYEBOTH STA (09:20)
== END 2024-07-18 10:00 | disposition left against medical advice (07) ==
LOC: DL.ED 08:56
DX: H10.9 Unspecified conjunctivitis (principal); I10 Essential (primary) hypertension; Z90.49 Acquired absence of other specified parts of digestive tract; Z88.5 Allergy status to narcotic agent; Z79.899 Other long term (current) drug therapy
CPT/HCPCS: 99283; J3490

== ENCOUNTER 2024-08-05 17:08 | Emergency (ER) | payer SELFPAY | END 2024-08-05 17:09 | disposition left against medical advice (07) | LOC: DL.ED 17:08 | DX: Z53.21 Procedure and treatment not carried out due to patient leaving prior to being seen by health care provider (principal) ==

== ENCOUNTER 2024-12-05 12:24 | Emergency (ER) | payer SELFPAY ==
[2024-12-05 12:38] VITALS: BP 143/95; PULSE 117
[2024-12-05 13:00] LABS: APPEARANCE,URINE SLIGHTLY CLOUDY (CLEAR); BILIRUBIN,URINE NEGATIVE (NEGATIVE); COLOR,URINE YELLOW (YELLOW); GLUCOSE,URINE NEGATIVE (NEGATIVE); KETONES,URINE NEGATIVE (NEGATIVE); LEUKOCYTE ESTERASE,URINE SMALL (NEGATIVE); NITRITE,URINE POSITIVE (NEGATIVE); OCCULT BLOOD,URINE TRACE-INTACT (NEGATIVE); PROTEIN,URINE 100 (NEGATIVE); UROBILINOGEN,URINE 0.2 mg/dL (0.2-1.0)
[2024-12-05 13:10] LABS: AMORPHOUS SEDIMENT,URINE FEW /HPF (NOT SEEN); BACTERIA,URINE MANY /HPF (0-FEW/HPF); EPITHELIAL CELLS,URINE MODERATE /HPF (NOT SEEN); MUCUS,URINE MODERATE /LPF (NOT SEEN); RBC,URINE 0-5 /HPF (0-5); WBC,URINE PACKED /HPF (0-5/HPF)
== END 2024-12-05 13:21 | disposition home or self-care (01) ==
LOC: DL.ED 12:24
DX: I10 Essential (primary) hypertension (principal); Z88.8 Allergy status to other drugs, medicaments and biological substances; Z79.899 Other long term (current) drug therapy; Z90.49 Acquired absence of other specified parts of digestive tract
CPT/HCPCS: 81001; 81025; 87086; 87088; 87186; 99284